=== PATIENT | female | born 1955 | race Caucasian/White ===

== ENCOUNTER 2020-10-15 15:10 | Outpatient (REF) | payer MEDICARE, OTHER, SELFPAY | END 2020-10-15 15:11 | disposition home or self-care (01) | LOC: HO.LAB 15:10 | PROVIDERS: PCP Internal Medicine; Visit Provider Internal Medicine | DX: Z20.828 Contact with and (suspected) exposure to other viral communicable diseases (principal) | CPT/HCPCS: C9803; U0003 ==

== ENCOUNTER 2022-08-29 15:14 | Inpatient (IN) | payer MEDICARE, OTHER, SELFPAY ==
--- NOTE | ~2022-08-29 | CT_ITS ---
EXAMINATION: CT FACIAL BONES WITH CONTRAST CLINICAL INFORMATION: Abscess by right lower jaw COMPARISON: None TECHNIQUE: Multidetector volumetric imaging was performed of the face following administration of 85 mL Omnipaque 300 intravenous contrast. Sagittal and coronal reformatted images were obtained on the technologist's workstation. This CT examination was performed using dose optimization techniques as appropriate, variously including the following: *Automated exposure control *Adjustment of mA and/or kV according to patient size (this includes techniques or standardized protocols for targeted exams where dose is matched to indication/reason for exam; i.e. extremities or head) *Use of iterative reconstruction technique DLP: 350 mGy-cm FINDINGS: There is no evidence of an acute facial bone fracture. The paranasal sinuses are well aerated. Periapical lucencies are seen involving the right maxillary canine with dehiscence of the ventral maxillary cortex and surrounding surrounding one of the residual right maxillary premolars. Dental caries noted in the left mandibular second premolar periapical lucencies involving the left maxillary second premolar and first molar. There is mild asymmetric infiltration of the fat ventral to the right maxillary canine without ivnaa rim enhancing drainable collection.. The orbits are unremarkable in appearance. Prominent submental lymph nodes measuring up to 0.8 m short axis on the left may be reactive in the setting of odontogenic infection. Visualized portion of the thyroid is unremarkable. Prevertebral soft tissues are unremarkable where visualized. Limited views of the brain are unremarkable. CT/CT facial bones w IV con IMPRESSION: 1. Odontogenic disease with multiple periapical lucencies and dental caries most notably involving the right maxillary canine with dehiscence of the ventral maxillary cortex. There is mild asymmetric infiltration of the fat ventral to the right maxillary canine without ivana rim enhancing drainable collection. 2. Prominent submental lymph nodes measuring up to 0.8 m short axis on the left may be reactive in the setting of odontogenic infection.
--- NOTE | 2022-08-29 15:17 | PC.NURSE ---
expect from N: pt coming in on a section 12 for transport from the community, sent in by N for not attending to her ADLs, increasing depression, hopelessness and passive SI.
[2022-08-29 15:25] VITALS: BP 128/78; BP 139/85; PULSE 105; PULSE 107; RESP 20; TEMP 37.6; O2SAT 96; O2SAT 99; BMI 22.6
--- NOTE | 2022-08-29 15:26 | ED_ITS ---
HPI - Psych General Chief Complaint: Psychiatric Symptoms Stated Complaint: SEC 12,CALM/COOP Time Seen by Provider: 08/29/22 15:17 Source: patient and EMS Mode of arrival: EMS Limitations: no limitations History of Present Illness HPI Narrative: Patient comes to the emergency room from [facility] on a Section 12. Patient states that she has trouble with depression, patient has not been taking her medications, states she is very forgetful about taking her medications. Patient states that she is not suicidal or homicidal, but due to the severe depression, she is unable to cope with her daily tasks. Related Data Allergies Allergy/AdvReac Type Severity Reaction Status Date / Time Penicillins Allergy Rash Verified 08/29/22 15:34 Review of Systems Review of Systems: Constitutional : No Weight loss, No Fever, No Chills, No Night Sweats, No Fatigue, No Malaise ENT/Mouth : No Hearing loss, No Ear Pain, No Nasal Congestion, No Sinus Pain, No Hoarseness, No sore throat, No Rhinorrhea, No Swallowing Difficulty Eyes: No Eye Pain, No Swelling, No Redness, No Foreign Body, No Discharge, No Vision Changes Cardiovascular : No Chest Pain, No SOB, No Dyspnea on Exertion, No Orthopnea, No Edema, No Palpitations Respiratory : No Cough, No Sputum, No Wheezing, No Smoke Exposure, No Dyspnea Gastrointestinal : No Nausea, No Vomiting, No Diarrhea, No Constipation, No abdominal Pain, No Hematochezia, No Melena Genitourinary : no irregular bleeding, No Dysuria, No Urinary Frequency, No Hematuria, No Urinary Incontinence, No Urgency, No Flank Pain, No Urinary Flow Changes, No Hesitancy Musculoskeletal : No joint pain, No Myalgias, No Joint Swelling Skin : No Skin Lesions, No rash Neuro : No Weakness, No Numbness, No Paresthesias, No Loss of Consciousness, No Dizziness, No Headache Psych : Complaining of depression, denies suicidal or homicidal ideation Heme/Lymph: No Bruising, No Bleeding,No Lymphadenopathy Endocrine : No Polyuria, No Polydipsia, No Temperature Intolerance [facility] Past Medical History Medical History (Updated 08/29/22 @ 17:41 by Corina Marie MD) Depression Social History Social History Alcohol intake: never Patient Tobacco Use Status: Never used Tobacco Use of substances other than those prescribed or required for medical reasons: No Advance Directives: No Advance Directives Information Provided: No Physical Exam Vital Signs: Vital Signs: Last Vital Signs Temp 99.6 F 08/29/22 15:25 Pulse 107 H 08/29/22 15:25 Resp 20 08/29/22 15:25 BP 139/85 08/29/22 15:25 Pulse Ox 96 08/29/22 15:25 O2 Del Method 08/29/22 15:25 BMI result Body Mass Index 22.6 Const: Other: Appearance: Alert. Oriented X3. No acute distress. Eyes: Pupils equal, round and reactive to light. ENT: Pharynx normal. Neck: Normal inspection. Neck supple. No lymph nodes noted. No crepitus CVS: Normal heart rate and rhythm. Pulses normal. Normal S1 and S2 Respiratory: No respiratory distress. Breath sounds normal. No Wheezing. No rales Abdomen: Soft and nontender. No rigidity. No distention. Skin: Skin warm and dry. Normal skin color. Normal skin turgor. Extremities: No lower extremity edema. No Lacerations. No Rash Neuro: Oriented X 3. No motor deficit. No sensory deficit. Moving all extremities. No slurred speech. CN 2 through 12 grossly intact Psych: calm, cooperative, rose affect Course Course Course Narrative: Since the patient has already been Section [address] [facility]. Likely an inpatient bed search. Patient denies any suicidal or homicidal ideation. All of patient's labs are pending By blood cell count within normal limits. Patient has a UTI. No fever, normal blood pressure, sepsis not suspected. Patient given the 1st dose of cefuroxime in the emergency room. Physician of supervision started at 15:32 [facility] - Psych Lab Data Result diagrams: 08/29/22 17:24 08/29/22 17:24 Labs: Lab Results 08/29/22 08/29/22 08/29/22 Range/Units 15:55 15:55 15:56 WBC (4.8-10.8) X10*3/uL RBC (4.20-5.50) X10*6/uL Hgb (12.0-16.0) g/dl Hct (37.0-47.0) % MCV (80.0-98.0) fL MCH (27.0-33.0) pg MCHC (31.0-35.0) g/dl RDW (11.0-16.0) % Plt Count (160-400) X10*3/uL MPV (9.4-12.3) fL Immature Gran % (Auto) (0.0-0.4) % Neut % (Auto) (45-73) % Lymph % (Auto) (20-40) % [place] % (Auto) (2-11) % Eos % (Auto) (0-4) % Baso % (Auto) (0-2) % Lymph # (Auto) (1.2-4.9) X10*3/uL [place] # (Auto) (0.1-1.2) X10*3/uL Eos # (Auto) (0.0-0.4) X10*3/uL Baso # (Auto) (0.0-0.2) X10*3/uL Abs Immat Gran (auto) (0.00-0.03) X10*3/uL Absolute Neuts (auto) (2.0-8.3) x10*3/uL Absolute Nucleated RBC (0.0-0.012) X10*3/uL Nucleated RBC % (auto) (0.0-0.2) /100WBC Urine Color Dark Yellow Urine Appearance Cloudy Urine pH 5.5 (5.0-9.0) Ur Specific [place] >= 1.030 H (1.005-1.025) Urine Protein 30 (1+) H (Neg-Trace) mg/dL Urine Glucose (UA) Negative (Negative) mg/dL Urine Ketones 15 (Negative) mg/dL Urine Blood Negative (Negative) Urine Nitrite Negative (Negative) Ur Leukocyte Esterase Small (1+) H (Negative) Urine RBC 6-10 H (0-2) /HPF Urine WBC 6-10 H (0-5) /HPF Ur Squamous Epith Cells >20 (0-2) /HPF Urine Bacteria 4+ (None Seen) Hyaline Casts 3-5 (0-2) /LPF Urine Opiates Screen Not Detected (Not Detect) Urine Fentanyl Screen Not Detected (Not Detect) Ur Barbiturates Screen POSITIVE H (Not Detect) Ur Phencyclidine Scrn Not Detected (Not Detect) Ur Amphetamines Screen Not Detected (Not Detect) U Benzodiazepines Scrn POSITIVE H (Not Detect) Urine Cocaine Screen Not Detected (Not Detect) U Marijuana (THC) Screen Not Detected (Not Detect) COVID-19 (TAMMIE) Negative (Negative) COVID-19 Clin Com See Note 08/29/22 Range/Units 17:24 WBC 7.2 (4.8-10.8) X10*3/uL RBC 4.19 L (4.20-5.50) X10*6/uL Hgb 13.5 (12.0-16.0) g/dl Hct 38.3 (37.0-47.0) % MCV 91.4 (80.0-98.0) fL MCH 32.2 (27.0-33.0) pg MCHC 35.2 H (31.0-35.0) g/dl RDW 14.4 (11.0-16.0) % Plt Count 305 (160-400) X10*3/uL MPV 8.7 L (9.4-12.3) fL Immature Gran % (Auto) 0.3 (0.0-0.4) % Neut % (Auto) 63.5 (45-73) % Lymph % (Auto) 27.4 (20-40) % [place] % (Auto) 7.1 (2-11) % Eos % (Auto) 0.7 (0-4) % Baso % (Auto) 1.0 (0-2) % Lymph # (Auto) 2.0 (1.2-4.9) X10*3/uL [place] # (Auto) 0.5 (0.1-1.2) X10*3/uL Eos # (Auto) 0.1 (0.0-0.4) X10*3/uL Baso # (Auto) 0.1 (0.0-0.2) X10*3/uL Abs Immat Gran (auto) 0.02 (0.00-0.03) X10*3/uL Absolute Neuts (auto) 4.6 (2.0-8.3) x10*3/uL Absolute Nucleated RBC 0.000 (0.0-0.012) X10*3/uL Nucleated RBC % (auto) 0.0 (0.0-0.2) /100WBC Urine Color Urine Appearance Urine pH (5.0-9.0) Ur Specific [place] (1.005-1.025) Urine Protein (Neg-Trace) mg/dL Urine Glucose (UA) (Negative) mg/dL Urine Ketones (Negative) mg/dL Urine Blood (Negative) Urine Nitrite (Negative) Ur Leukocyte Esterase (Negative) Urine RBC (0-2) /HPF Urine WBC (0-5) /HPF Ur Squamous Epith Cells (0-2) /HPF Urine Bacteria (None Seen) Hyaline Casts (0-2) /LPF Urine Opiates Screen (Not Detect) Urine Fentanyl Screen (Not Detect) Ur Barbiturates Screen (Not Detect) Ur Phencyclidine Scrn (Not Detect) Ur Amphetamines Screen (Not Detect) U Benzodiazepines Scrn (Not Detect) Urine Cocaine Screen (Not Detect) U Marijuana (THC) Screen (Not Detect) COVID-19 (TAMMIE) (Negative) COVID-19 Clin Com Discharge Plan Discharge Clinical Impression: Depression, UTI (urinary tract infection) Patient Disposition: Still a Patient
--- NOTE | 2022-08-29 15:31 | ECG_ITS ---
Test Reason : MED CLEARANCE Blood Pressure : / mmHG Vent. Rate : 096 BPM Atrial Rate : 096 BPM P-R Int : 176 ms QRS Dur : 082 ms QT Int : 360 ms P-R-T Axes : 043 -35 027 degrees QTc Int : 454 ms Normal sinus rhythm Left anterior fascicular block Otherwise normal ECG No previous ECGs available Referred By: Corina Marie Electronically Signed By:HARPAL LOPEZ MD
--- NOTE | 2022-08-29 15:39 | MHC.CARE ---
Prashant PRECIADO pt is an inpatient psych bedsearch.
[2022-08-29 16:16] LABS: Appearance Urine Cloudy; Color Urine Dark Yellow; Glucose Urine UA Negative (Negative); Leukocyte Esterase Urine Small (1+) (Negative); Nitrite Urine Negative (Negative); PH 5.5 (5.0-9.0); Specific Gravity - Urine >= 1.030 (1.005-1.025); UMIC TRIGGER UACC YES; Urine Blood Negative (Negative); Urine Ketones 15 mg/dL (Negative); Urine Protein 30 (1+) mg/dL (Neg-Trace)
[2022-08-29 16:22] LABS: Amphetamine Screen Urine Not Detected (Not Detect); Barbiturates, Urine POSITIVE (Not Detect); Benzodiazepines Screen Urine POSITIVE (Not Detect); Cannabinoid Screen Urine Not Detected (Not Detect); Cocaine Screen Urine Not Detected (Not Detect); Fentanyl, urine Not Detected (Not Detect); Opiate Screen Urine Not Detected (Not Detect); Phencyclidine Screen Urine Not Detected (Not Detect)
[2022-08-29 16:29] LABS: Bacteria Urine 4+ (None Seen); Squamous Epithelial Cell Urine >20 /HPF (0-2); UACC Culture Trigger YES
[2022-08-29 16:46] LABS: COVID-19 Test Negative (Negative); IDNOW Serial# 16C4AD1C
[2022-08-29 17:29] LABS: MANUAL DIFF FLAG NO
[2022-08-29 17:35] LABS: Basophils Absolute Auto 0.1 X10*3/uL (0.0-0.2); Eosinophils Absolute Auto 0.1 X10*3/uL (0.0-0.4); Eosinophils Percent Auto 0.7 % (0-4); Hematocrit 38.3 % (37.0-47.0); Hemoglobin 13.5 g/dl (12.0-16.0); Imm Gran Abs Auto 0.02 X10*3/uL (0.00-0.03); Imm Gran Pct Auto 0.3 % (0.0-0.4); Lymphocytes Percent Auto 27.4 % (20-40); Mean Corpuscular HGB Conc 35.2 g/dl (31.0-35.0); Mean Corpuscular Hemoglobin 32.2 pg (27.0-33.0); Mean Corpuscular Volume 91.4 fL (80.0-98.0); Mean Platelet Volume 8.7 fL (9.4-12.3); Monocytes Absolute Auto 0.5 X10*3/uL (0.1-1.2); Monocytes Percent Auto 7.1 % (2-11); Neutrophils Absolute Auto 4.6 x10*3/uL (2.0-8.3); Neutrophils Percent Auto 63.5 % (45-73); Platelet Count 305 X10*3/uL (160-400); Red Blood Count 4.19 X10*6/uL (4.20-5.50); Red Cell Distribution Width 14.4 % (11.0-16.0); White Blood Count 7.2 X10*3/uL (4.8-10.8)
[2022-08-29] MEDS: Acetaminophen 325 MG TABLET 975 MG PO (17:39)
[2022-08-29 17:47] LABS: Ethanol < 10 mg/dL
[2022-08-29 17:49] LABS: Alanine Aminotransferase 22 U/L (0-31); Albumin Level 4.6 g/dL (3.5-5.0); Alkaline Phosphatase 75 U/L (39-117); Anion Gap 19 (12-20); Aspartate Amino Transferase 38 U/L (5-31); Bilirubin Direct 0.3 mg/dL (0.0-0.5); Bilirubin Total 0.6 mg/dL (0.0-1.0); Blood Urea Nitrogen 6 mg/dL (9-16); Carbon Dioxide 30 mmol/L (22-29); Chloride 98 mmol/L (96-108); Creatinine Clr Calc Pharmacy 58.1; Estimated Glomerular Filt Rate > 60; Glucose Random 109 mg/dL (60-115); Potassium 3.6 mmol/L (3.3-5.1); Sodium 143 mmol/L (135-145)
--- NOTE | 2022-08-29 19:29 | PHA.MEDREC ---
Pharmacy Consult ? Medication Reconciliation Pharmacy has completed the medication reconciliation. Based on claim history as Patient states that she has trouble with depression, patient has not been taking her medications, states she is very forgetful about taking her medications. per ED Report
[2022-08-29 20:34] VITALS: BP 107/63; PULSE 77; RESP 18; TEMP 36.6; O2SAT 99
[2022-08-29 21:21] VITALS: BP 123/77; PULSE 90; RESP 17; TEMP 37.5; O2SAT 100
[2022-08-29] MEDS: QUEtiapine Fumarate 100 MG TABLET PO (21:21)
[2022-08-29] MEDS: Famotidine 20 MG TABLET PO (21:21)
[2022-08-29] MEDS: hydrOXYzine HCL 50 MG TABLET PO (21:22)
[2022-08-29] MEDS: cloNIDine HCL 0.1 MG TABLET PO (21:22)
[2022-08-30 01:15] VITALS: BP 121/71; PULSE 105; RESP 16; TEMP 36.1; O2SAT 100
--- NOTE | 2022-08-30 03:25 | PC.ADMIT ---
Admission Note: Pt arrived on the unit via w/c at 0115 from ER. Pt is a 67 yo female on a CV for increased depression, helplessness and hopelessness. Reports recently thinking about family members, including mother, , son and sister. UDS +barbituates, +benzodiazepines. Reports drinking ETOH 1-2 drinks 3x/wk and caffeine daily. Reports recent fall on 08/28/22 and states she tripped. Denies smoking or other substance abuse. Reports poor appetite and weight loss of 5 lbs. Pt ate sandwich, snack and drank 360cc water during admission process. PMH: Current UTI (started on Ceftin), Depression, HTN, Asthma. Allergies: PCN. Denies SI/HI/AH/VH. Contracts for safety. Cooperative with admission process. Maintained on 15 min safety checks. Will continue to monitor.
[2022-08-30 08:03] VITALS: BP 124/71; PULSE 62; RESP 16; TEMP 36.8; O2SAT 96
[2022-08-30] MEDS: Naltrexone HCl 50 MG TABLET PO (09:22)
[2022-08-30] MEDS: DULoxetine HCl 30 MG CAPSULE.DR PO (09:22)
[2022-08-30] MEDS: lisinopriL 20 MG TABLET PO (09:23)
[2022-08-30] MEDS: cloNIDine HCL 0.1 MG TABLET PO ×2 (09:23→14:35)
[2022-08-30] MEDS: hydrOXYzine HCL 50 MG TABLET PO ×2 (09:23→14:35)
[2022-08-30] MEDS: Famotidine 20 MG TABLET PO ×2 (09:23→19:38)
[2022-08-30] MEDS: amLODIPine Besylate 5 MG TABLET PO (09:23)
[2022-08-30] MEDS: Acetaminophen 325 MG TABLET 650 MG PO (17:35)
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
[2022-08-30] MEDS: Lidocaine 4 % Patch ADH..PATCH 1 PATCH TRANSDERMA ×2 (19:39)
[2022-08-30 20:19] VITALS: BP 125/64; PULSE 72
--- NOTE | 2022-08-30 20:34 | MHC.RECOVSUP ---
? Reason for consult:Recovery Support o Current location:[facility] ? o Identified substance use concern: AUD? - Support ? ?Intervention: o Community resources provided o Harm reduction discussion ? Additional information:?Patient consult with the Care Team prior to entry. Pt is seeking a Personal Shopper once she leaves the hospital. A referral will be submitted
[2022-08-30] MEDS: traZODone HCL 25 MG HALFTAB PO (21:37)
[2022-08-31] MEDS: Acetaminophen 325 MG TABLET 650 MG PO ×3 (04:14→17:52)
[2022-08-31 08:03] VITALS: BP 116/68; PULSE 70; RESP 16; TEMP 36.9; O2SAT 97
[2022-08-31] MEDS: lisinopriL 20 MG TABLET PO (08:52)
[2022-08-31] MEDS: DULoxetine HCl 30 MG CAPSULE.DR PO (08:53)
[2022-08-31] MEDS: Lidocaine 4 % Patch ADH..PATCH 1 PATCH TRANSDERMA ×2 (08:53→19:42)
[2022-08-31] MEDS: Famotidine 20 MG TABLET PO ×2 (08:53→19:35)
[2022-08-31] MEDS: Naltrexone HCl 50 MG TABLET PO (08:53)
[2022-08-31] MEDS: amLODIPine Besylate 5 MG TABLET PO (08:53)
[2022-08-31 09:25] LABS: Estimated Average Glucose 91 mg/dL; Hemoglobin A1C 85.4393 umol/L; Hemoglobin A1c % 4.8 %
[2022-08-31 09:50] LABS: Alanine Aminotransferase 13 U/L (0-31); Albumin Level 3.7 g/dL (3.5-5.0); Alkaline Phosphatase 60 U/L (39-117); Anion Gap 14 (12-20); Aspartate Amino Transferase 21 U/L (5-31); Bilirubin Total 0.4 mg/dL (0.0-1.0); Blood Urea Nitrogen 8 mg/dL (9-16); Calcium 9.4 mg/dL (8.4-10.2); Carbon Dioxide 29 mmol/L (22-29); Chloride 104 mmol/L (96-108); Cholesterol 202 mg/dL; Creatinine Clr Calc Pharmacy 75.1; Estimated Glomerular Filt Rate > 60; Glucose Fasting 86 mg/dL (60-99); HDL Cholesterol 91 mg/dL; LDL Cholesterol Calculated 93 mg/dl; Potassium 4.1 mmol/L (3.3-5.1); Sodium 143 mmol/L (135-145); Total Protein 6.4 g/dL (6.5-8.0); Triglycerides 93 mg/dL
[2022-08-31 09:59] LABS: Thyroid Stimulating Hormone 0.51 uIU/mL (0.32-4.0)
[2022-08-31 10:36] LABS: Folate 12.7 ng/mL (> or = 4.0); Vitamin B12 353 pg/mL (200-900)
--- NOTE | 2022-08-31 14:14 | MHC.CLN ---
NUTRITION CONSULT FOR 5# WEIGHT LOSS AND POOR INTAKE. PATIENT REPORTS THAT SHE IS EATING MUCH BETTER HERE THAN AT HOME. WOULD LIKE ENSURE BID. STATED THAT HAS AT HOME (RAN OUT). PROVIDES ADDITIONAL 700 KCALS, 40 G PROTEIN. CONTINUE REGULAR DIET WITH NUTRITIONAL SUPPLEMENT.
--- NOTE | 2022-08-31 16:57 | HO.PSYCHPN ---
Subjective Subjective Date of Service: 08/31/22 Reason For Visit: SI Subjective Notes: Richard Warning Interim History: Discussed with team. Met with pt. She says the lidocaine patch is not helping with her knee pain, tylenol and ibuprofen aren't helping either. Has arthritis. Willing to trial aspercreme due to past benefit and diclofenac. Says she feels emotional but better, wants to spend more time with her grandchildren when she leaves. Interested in AA. Still needs a MOCA. Has difficulty falling asleep but this is baseline. willing to trial a higher dose of trazodone, wants a good night sleep. Medication Compliance: Yes Side effects from medications: No Attending Groups: Yes Review of Systems Acute medical concerns: No Medical Review of Systems: unchanged Mental Status Exam Mental Status Exam Narrative: A&O. Well groomed, good hygiene, normal body habitus. Moderate eye contact, inattentive. No Tics or Tremors. No abnormal involuntary movements. Calm, guarded, minimizing sx. Non-pressured speech, spontaneous with regular rate and rhythm, normal volume and prosody. No prolonged speech latency or dysarthria. Mood is ?better,? affect is constricted. Denies SI/SIB/HI upon inquiry. Denies A/VH or delusional thought content. Thoughts are distracted. R/o memory impairment. Insight/ Judgment fair and adequate. Diagnostics Vital Signs (24Hr): Vital Signs - 24 hr 08/30/22 20:19 08/31/22 08:03 Temperature 98.5 F Pulse Rate 72 70 Respiratory Rate 16 Blood Pressure 125/64 116/68 Pulse Oximetry 97 Oxygen Delivery Method Room Air BMI result Body Mass Index 22.6 Labs Results: 08/29/22 17:24 08/31/22 08:31 Labs: Laboratory Results - last 48 hr 08/29/22 08/29/22 08/29/22 17:24 17:24 17:24 WBC 7.2 RBC 4.19 L Hgb 13.5 Hct 38.3 MCV 91.4 MCH 32.2 MCHC 35.2 H RDW 14.4 Plt Count 305 MPV 8.7 L Immature Gran % (Auto) 0.3 Neut % (Auto) 63.5 Lymph % (Auto) 27.4 Anson % (Auto) 7.1 Eos % (Auto) 0.7 Baso % (Auto) 1.0 Lymph # (Auto) 2.0 Anson # (Auto) 0.5 Eos # (Auto) 0.1 Baso # (Auto) 0.1 Abs Immat Gran (auto) 0.02 Absolute Neuts (auto) 4.6 Absolute Nucleated RBC 0.000 Nucleated RBC % (auto) 0.0 Sodium 143 Potassium 3.6 Chloride 98 Carbon Dioxide 30 H Anion Gap 19 BUN 6 L Creatinine 0.89 Estim Creat Clear Calc 58.1 Estimated GFR > 60 Random Glucose 109 Fasting Glucose Estimat Average Glucose Hemoglobin A1c % Calcium 10.0 Total Bilirubin 0.6 Direct Bilirubin 0.3 AST 38 H ALT 22 Alkaline Phosphatase 75 Total Protein 8.0 Albumin 4.6 Triglycerides Cholesterol LDL Cholesterol, Calc HDL Cholesterol Vitamin B12 Folate TSH Ethyl Alcohol < 10 08/31/22 08/31/22 08/31/22 08:31 08:31 08:31 WBC RBC Hgb Hct MCV MCH MCHC RDW Plt Count MPV Immature Gran % (Auto) Neut % (Auto) Lymph % (Auto) Anson % (Auto) Eos % (Auto) Baso % (Auto) Lymph # (Auto) Anson # (Auto) Eos # (Auto) Baso # (Auto) Abs Immat Gran (auto) Absolute Neuts (auto) Absolute Nucleated RBC Nucleated RBC % (auto) Sodium 143 Potassium 4.1 Chloride 104 Carbon Dioxide 29 Anion Gap 14 BUN 8 L Creatinine 0.69 Estim Creat Clear Calc 75.1 Estimated GFR > 60 Random Glucose Fasting Glucose 86 Estimat Average Glucose 91 Hemoglobin A1c % 4.8 Calcium 9.4 Total Bilirubin 0.4 Direct Bilirubin AST 21 D ALT 13 Alkaline Phosphatase 60 Total Protein 6.4 L Albumin 3.7 Triglycerides 93 Cholesterol 202 LDL Cholesterol, Calc 93 HDL Cholesterol 91 Vitamin B12 353 Folate 12.7 TSH 0.51 Ethyl Alcohol Medications Medications Current Medications Acetaminophen (Acetaminophen 325 Mg Tablet) 650 mg PO Q6H PRN PRN Reason: Headache/Pain Mild Scale (1-3) Last Admin: 08/31/22 11:42 Dose: 650 mg Al Hydroxide/Mg Hydroxide (Magnesium Hydrox/Alum Hydrox 30 Ml Oral.Susp) 30 ml PO Q6H PRN PRN Reason: Heartburn/Nausea Amlodipine Besylate (Amlodipine Besylate 5 Mg Tablet) 5 mg PO DAILY [facility]; Protocol Last Admin: 08/31/22 08:53 Dose: 5 mg Cefuroxime Axetil (Cefuroxime Axetil 500 Mg Tablet) 500 mg PO BID@0600,1800 [facility] Last Admin: 08/31/22 08:53 Dose: 500 mg Duloxetine HCl (Duloxetine Hcl 30 Mg Capsule.Dr) 30 mg PO DAILY [facility] Last Admin: 08/31/22 08:53 Dose: 30 mg Famotidine (Famotidine 20 Mg Tablet) 20 mg PO BID [facility] Last Admin: 08/31/22 08:53 Dose: 20 mg Hydroxyzine HCl (Hydroxyzine Hcl 25 Mg Tablet) 25 mg PO Q6H PRN PRN Reason: Anxiety Lidocaine (Lidocaine 4 % Patch Adh..Patch) 1 patch TRANSDERMA BID [facility] Last Admin: 08/31/22 08:53 Dose: 1 patch Lisinopril (Lisinopril 20 Mg Tablet) 20 mg PO DAILY [facility]; Protocol Last Admin: 08/31/22 08:52 Dose: 20 mg Magnesium Hydroxide (Milk Of Magnesia 30 Ml Oral.Susp) 30 ml PO DAILY PRN PRN Reason: Constipation Naltrexone HCl (Naltrexone Hcl 50 Mg Tablet) 50 mg PO DAILY [facility] Last Admin: 08/31/22 08:53 Dose: 50 mg Trazodone HCl (Trazodone Hcl 25 Mg Halftab) 25 mg PO BEDTIME [facility] Last Admin: 08/30/22 21:37 Dose: 25 mg Allergies Allergies Allergy/AdvReac Type Severity Reaction Status Date / Time Penicillins Allergy Rash Verified 08/29/22 15:34 Assessment & Plan Assessment & Plan (1) Alcohol use disorder, severe, dependence: Status: Acute Code(s): F10.20 - Alcohol dependence, uncomplicated (2) MDD (major depressive disorder), recurrent episode, moderate: Status: Acute Code(s): F33.1 - Major depressive disorder, recurrent, moderate Plan Sabrina is a 67 y.o. female. She carries a dx of alcohol use disorder, MDD recurrent. She presented to [facility] ED on 08/29/22 due to increased depression, med non-adherence, and forgetfulness in the context of daily drinking and currently has a UTI (started on Ceftin in the ED). Pt reported not attending to ADLs. Precipitating fxs include complicated bereavement, as she is ruminating on numerous losses, including her father ( of suicide when she was younger), son ( 15 yrs ago from MVA), mother ( of cancer a few yrs ago), and sister ( of complications from alcohol a few yrs ago). Plan: Recommend obtaining MOCA due to memory issues. Will re-start Cymbalta 30 mg daily for sx of depression, may help with chronic pain. Re-start naltrexone 50 mg daily for alcohol abuse. Re-start trazodone at 25 mg QHS and may repeat 1x. Will not restart Seroquel due to pt reporting morning hangover effect. Will not restart clonidine, as she does not want medications she has to take multiple times a day due to forgetfulness. On list for recovery team to see her. Interested in AA. 08/31: Increase trazodone to 100 mg HS for insomnia Q15 min safety checks, CV Monitor response to medications. Monitor for safety in the milieu. Discharge on stabilization. Patient seen. Chart reviewed. Discussed with team. Obtain collateral contact info?as needed I spent minutes with the patient and/or on the patient floor today, greater than?50% of which was spent counseling/coordinating care. Patient educated on: diagnosis, medication risk/benefits and therapeutic strategies Reason for contiued inpatient stay Substantial Risk for: med/psych decompensation
[2022-08-31 17:23] VITALS: BP 131/71; PULSE 73; RESP 16; TEMP 36.6; O2SAT 97
[2022-08-31] MEDS: traZODone HCL 50 MG TABLET PO (19:35)
[2022-09-01 06:00] VITALS: BP 128/58; PULSE 76; RESP 14; TEMP 36.5; O2SAT 96
[2022-09-01 07:00] VITALS: BMI 22.4
[2022-09-01] MEDS: lisinopriL 20 MG TABLET PO (08:33)
[2022-09-01] MEDS: Famotidine 20 MG TABLET PO ×2 (08:33→20:31)
[2022-09-01] MEDS: DULoxetine HCl 30 MG CAPSULE.DR PO (08:33)
[2022-09-01] MEDS: amLODIPine Besylate 5 MG TABLET PO (08:33)
[2022-09-01] MEDS: Naltrexone HCl 50 MG TABLET PO (08:33)
[2022-09-01] MEDS: Lidocaine 4 % Patch ADH..PATCH 1 PATCH TRANSDERMA ×2 (09:01→18:32)
--- NOTE | 2022-09-01 09:06 | P.PNPSI_ITS ---
Subjective Subjective Date of Service: 09/01/22 Reason For Visit: SI Interim History: Patient reports mood is better and that she feels good; denies SI or HI. Patient says that getting into AA is her #1 priority. She used to go to meetings in the past. Regarding alcohol, Patient reiterates that she is done with it. Patient is also interested in getting into partial day program post discharge and is working with social work on application. Discussed memory issues and patient understands that alcohol abuse has been very likely contributory Mental Status Exam Mental Status Exam Narrative: Pt is alert and oriented; behavior is cooperative, friendly and calm; patient is not in distress; dressed in casual attire, adequately groomed; mood is described as good and affect congruent; eye contact appropriate; Speech is normal rate, volume and prosody and not pressured; no psychomotor agitation/retardation present; thought process is organized and goal directed; Thought content is on tx, aftercare, sobriety; otherwise pertinent to relevant topics and without any delusional content, paranoid ideations or grandiosity; denies any SI/HI. There is no evidence of perceptual disturbance. Patients insight and judgment are intact. Diagnostics Vital Signs (24Hr): Vital Signs - 24 hr 08/31/22 17:23 Temperature 97.9 F Pulse Rate 73 Respiratory Rate 16 Blood Pressure 131/71 Pulse Oximetry 97 Oxygen Delivery Method Room Air BMI result Body Mass Index 22.6 Labs Results: 08/29/22 17:24 08/31/22 08:31 Labs: Laboratory Results - last 48 hr 08/31/22 08/31/22 08/31/22 08:31 08:31 08:31 Sodium 143 Potassium 4.1 Chloride 104 Carbon Dioxide 29 Anion Gap 14 BUN 8 L Creatinine 0.69 Estim Creat Clear Calc 75.1 Estimated GFR > 60 Fasting Glucose 86 Estimat Average Glucose 91 Hemoglobin A1c % 4.8 Calcium 9.4 Total Bilirubin 0.4 AST 21 D ALT 13 Alkaline Phosphatase 60 Total Protein 6.4 L Albumin 3.7 Triglycerides 93 Cholesterol 202 LDL Cholesterol, Calc 93 HDL Cholesterol 91 Vitamin B12 353 Folate 12.7 TSH 0.51 Medications Medications Current Medications Acetaminophen (Acetaminophen 325 Mg Tablet) 650 mg PO Q6H PRN PRN Reason: Headache/Pain Mild Scale (1-3) Last Admin: 08/31/22 17:52 Dose: 650 mg Al Hydroxide/Mg Hydroxide (Magnesium Hydrox/Alum Hydrox 30 Ml Oral.Susp) 30 ml PO Q6H PRN PRN Reason: Heartburn/Nausea Amlodipine Besylate (Amlodipine Besylate 5 Mg Tablet) 5 mg PO DAILY [facility]; Protocol Last Admin: 09/01/22 08:33 Dose: 5 mg Cefuroxime Axetil (Cefuroxime Axetil 500 Mg Tablet) 500 mg PO BID@0600,1800 [facility] Last Admin: 09/01/22 08:33 Dose: 500 mg Diclofenac Sodium (Diclofenac Sodium Delayed Rel 50 Mg Tablet.) 50 mg PO BID PRN PRN Reason: pain, moderate Duloxetine HCl (Duloxetine Hcl 30 Mg Capsule.Dr) 30 mg PO DAILY [facility] Last Admin: 09/01/22 08:33 Dose: 30 mg Famotidine (Famotidine 20 Mg Tablet) 20 mg PO BID [facility] Last Admin: 09/01/22 08:33 Dose: 20 mg Hydroxyzine HCl (Hydroxyzine Hcl 25 Mg Tablet) 25 mg PO Q6H PRN PRN Reason: Anxiety Lidocaine (Lidocaine 4 % Patch Adh..Patch) 1 patch TRANSDERMA BID [facility] Last Admin: 09/01/22 09:01 Dose: 1 patch Lisinopril (Lisinopril 20 Mg Tablet) 20 mg PO DAILY [facility]; Protocol Last Admin: 09/01/22 08:33 Dose: 20 mg Magnesium Hydroxide (Milk Of Magnesia 30 Ml Oral.Susp) 30 ml PO DAILY PRN PRN Reason: Constipation Naltrexone HCl (Naltrexone Hcl 50 Mg Tablet) 50 mg PO DAILY [facility] Last Admin: 09/01/22 08:33 Dose: 50 mg Trazodone HCl (Trazodone Hcl 50 Mg Tablet) 50 mg PO BEDTIME [facility] Last Admin: 08/31/22 19:35 Dose: 50 mg Trolamine Salicylate (Trolamine Salicylate 10 % Cream 85 Gm Tube) 1 appl TOPICAL TID PRN PRN Reason: arthritis pain Allergies Allergies Allergy/AdvReac Type Severity Reaction Status Date / Time Penicillins Allergy Rash Verified 08/29/22 15:34 Assessment & Plan Assessment & Plan (1) MDD (major depressive disorder), recurrent episode, moderate: Status: Acute Code(s): F33.1 - Major depressive disorder, recurrent, moderate (2) Alcohol use disorder, severe, dependence: Status: Acute Code(s): F10.20 - Alcohol dependence, uncomplicated Plan Sabrina is a 67 y.o. female. She carries a dx of alcohol use disorder, MDD recurrent. She presented to [facility] on 08/29/22 due to increased depression, med non-adherence, and forgetfulness in the context of daily drinking and currently has a UTI (started on Ceftin in the ED). Pt reported not attending to ADLs. Precipitating fxs include complicated bereavement, as she is ruminating on numerous losses, including her father ( of suicide when she was younger), son ( 15 yrs ago from MVA), mother ( of cancer a few yrs ago), and sist er ( of complications from alcohol a few yrs ago). 09/01 mood much better; no SI or HI; motivated to stay sober Low score on MOCA, ; likely multifactorial including post detox fog and depression reviewed B12/Folate levels which are WNL Plan: Q15 min safety checks, CV Continue Cymbalta 30 mg; patient finds it effective Continue naltrexone 50 mg for cravings Trazodone Monitor response to medications. Monitor for safety in the milieu. Discharge on stabilization. Patient seen. Chart reviewed. Discussed with team. Obtain collateral contact info?as needed I spent minutes with the patient and/or on the patient floor today, greater than?50% of which was spent counseling/coordinating care. Patient educated on: diagnosis and medication risk/benefits Informed Consent: understands Reason for contiued inpatient stay Substantial Risk for: stable for discharge
[2022-09-01] MEDS: Acetaminophen 325 MG TABLET 650 MG PO ×2 (11:53→18:30)
--- NOTE | 2022-09-01 14:29 | PC.NURSE ---
Pt participated in [facility] screen on this date with this abstract writer. Pt scored 16/30, indicating moderate cognitive impairment. MD aware of results.
[2022-09-01] MEDS: Multivitamin TABLET 1 TAB PO (16:29)
[2022-09-01 20:30] VITALS: BP 118/75; PULSE 80; TEMP 36.4
[2022-09-01] MEDS: traZODone HCL 50 MG TABLET PO (20:31)
[2022-09-01] MEDS: Diclofenac Sodium Delayed Rel 50 MG TABLET.DR PO (20:31)
[2022-09-02 06:00] VITALS: BP 119/59; PULSE 72; RESP 14; TEMP 36.6; O2SAT 97
[2022-09-02] MEDS: lisinopriL 20 MG TABLET PO (08:36)
[2022-09-02] MEDS: Naltrexone HCl 50 MG TABLET PO (08:36)
[2022-09-02] MEDS: DULoxetine HCl 30 MG CAPSULE.DR PO (08:36)
[2022-09-02] MEDS: amLODIPine Besylate 5 MG TABLET PO (08:36)
[2022-09-02] MEDS: Lidocaine 4 % Patch ADH..PATCH 1 PATCH TRANSDERMA ×2 (08:37→19:58)
[2022-09-02] MEDS: Famotidine 20 MG TABLET PO ×2 (08:37→19:05)
[2022-09-02] MEDS: Multivitamin TABLET 1 TAB PO (08:37)
[2022-09-02] MEDS: Acetaminophen 325 MG TABLET 650 MG PO ×2 (11:57→18:02)
--- NOTE | 2022-09-02 14:15 | P.PNPSI_ITS ---
Subjective Subjective Date of Service: 09/02/22 Reason For Visit: SI Interim History: Mood remains improved. Patient complaining of tooth pain lower left molar. Medical Collections Representative examined and place m edical consult to assess for abscess and whether or not antibiotics are needed Mental Status Exam Mental Status Exam Narrative: Pt is alert and oriented; behavior is cooperative, friendly and calm; patient is in physical discomfort from mouth pain; dressed in casual attire, adequately g roomed; mood is described as ok and affect looks in physical discomfort; eye contact appropriate; Speech is normal rate, volume and prosody and not pressured; no psychomotor agitation/retardation present; thought process is organized and goal directed; Thought content is on tx, aftercare, sobriety; otherwise pertinent to relevant topics and without any delusional content, paranoid ideations or grandiosity; denies any SI/HI. There is no evidence of perceptual disturbance. Patients insight and judgment are intact. Diagnostics Vital Signs (24Hr): Vital Signs - 24 hr 09/01/22 20:30 09/02/22 06:00 Temperature 97.6 F 98 F Pulse Rate 80 72 Respiratory Rate 14 Blood Pressure 118/75 119/59 L Pulse Oximetry 97 Oxygen Delivery Method Room Air BMI result Body Mass Index 22.4 Labs Results: 08/29/22 17:24 08/31/22 08:31 Medications Medications Current Medications Acetaminophen (Acetaminophen 325 Mg Tablet) 650 mg PO Q6H PRN PRN Reason: Headache/Pain Mild Scale (1-3) Last Admin: 09/02/22 11:57 Dose: 650 mg Al Hydroxide/Mg Hydroxide (Magnesium Hydrox/Alum Hydrox 30 Ml Oral.Susp) 30 ml PO Q6H PRN PRN Reason: Heartburn/Nausea Amlodipine Besylate (Amlodipine Besylate 5 Mg Tablet) 5 mg PO DAILY [facility]; Protocol Last Admin: 09/02/22 08:36 Dose: 5 mg Benzocaine (Benzocaine 20 % Oral Gel 9 Gm Tube) 1 appl MUCOUS MEM QID PRN; Protocol PRN Reason: tooth pain Cefuroxime Axetil (Cefuroxime Axetil 500 Mg Tablet) 500 mg PO BID@0600,1800 [facility] Last Admin: 09/02/22 06:10 Dose: 500 mg Diclofenac Sodium (Diclofenac Sodium Delayed Rel 50 Mg Tablet.Dr) 50 mg PO BID PRN PRN Reason: pain, moderate Last Admin: 09/01/22 20:31 Dose: 50 mg Duloxetine HCl (Duloxetine Hcl 30 Mg Capsule.Dr) 30 mg PO DAILY [facility] Last Admin: 09/02/22 08:36 Dose: 30 mg Famotidine (Famotidine 20 Mg Tablet) 20 mg PO BID [facility] Last Admin: 09/02/22 08:37 Dose: 20 mg Hydroxyzine HCl (Hydroxyzine Hcl 25 Mg Tablet) 25 mg PO Q6H PRN PRN Reason: Anxiety Ibuprofen (Ibuprofen 600 Mg Tablet) 600 mg PO Q6H PRN PRN Reason: mild pain Lidocaine (Lidocaine 4 % Patch Adh..Patch) 1 patch TRANSDERMA BID [facility] Last Admin: 09/02/22 08:37 Dose: 1 patch Lisinopril (Lisinopril 20 Mg Tablet) 20 mg PO DAILY [facility]; Protocol Last Admin: 09/02/22 08:36 Dose: 20 mg Magnesium Hydroxide (Milk Of Magnesia 30 Ml Oral.Susp) 30 ml PO DAILY PRN PRN Reason: Constipation Multivitamins/Vitamin C (Multivitamin Tablet) 1 tab PO DAILY [facility] Last Admin: 09/02/22 08:37 Dose: 1 tab Naltrexone HCl (Naltrexone Hcl 50 Mg Tablet) 50 mg PO DAILY [facility] Last Admin: 09/02/22 08:36 Dose: 50 mg Trazodone HCl (Trazodone Hcl 50 Mg Tablet) 50 mg PO BEDTIME [facility] Last Admin: 09/01/22 20:31 Dose: 50 mg Trolamine Salicylate (Trolamine Salicylate 10 % Cream 85 Gm Tube) 1 appl TOPI ODESSA TID PRN PRN Reason: arthritis pain Allergies Allergies Allergy/AdvReac Type Severity Reaction Status Date / Time Penicillins Allergy Rash Verified 08/29/22 15:34 Assessment & Plan Assessment & Plan (1) Alcohol use disorder, severe, dependence: Status: Acute Code(s): F10.20 - Alcohol dependence, uncomplicated (2) MDD (major depressive disorder), recurrent episode, moderate: Status: Acute Code(s): F33.1 - Major depressive disorder, recurrent, moderate Plan Sabrina is a 67 y.o. female. She carries a dx of alcohol use disorder, MDD recurrent. She presented to [facility] on 08/29/22 due to increased depression, med non-adherence, and forgetfulness in the context of daily drinking and currently has a UTI (started on Ceftin in the ED). Pt reported not attending to ADLs. Precipitating fxs include complicated bereavement, as she is ruminating on numerous losses, including her father ( of suicide when she was younger), son ( 15 yrs ago from MVA), mother ( of cancer a few yrs ago), and sister ( of complications from alcohol a few yrs ago). 09/01 mood much better; no SI or HI; motivated to stay sober Low score on MOCA, ; likely multifactorial including post detox fog and depression reviewed B12/Folate levels which are WNL 09/02 patient has beginning of it looks like a possible abscess lower left molar ; will get Medicaid will consult. Otherwise patient remains in improved mood. Despite improved symptoms, patient is at risk for both relapse and decompensation and it is ad copy writer's opinion she should remain on the unit so that aftercare can be better set up for her. Plan: Q15 min safety checks, CV Hospitalist consult to examine lower left molar/abscess Continue Cymbalta 30 mg; patient finds it effective Continue naltrexone 50 mg for cravings Trazodone Monitor response to medications. Monitor for safety in the milieu. Discharge on stabilization. Patient seen. Chart reviewed. Discussed with team. Obtain collateral contact info?as needed I spent minutes with the patient and/or on the patient floor today, greater than?50% of which was spent counseling/coordinating care. Patient educated on: diagnosis and medical condition Informed Consent: understands Reason for contiued inpatient stay Substantial Risk for: stable for discharge
[2022-09-02] MEDS: Ibuprofen 600 MG TABLET PO ×2 (14:55→19:04)
[2022-09-02] MEDS: Benzocaine 20 % Oral Gel 9 GM TUBE 1 APPL MUCOUS MEM (15:49)
[2022-09-02 16:15] VITALS: BP 132/80; PULSE 73; TEMP 36.5
[2022-09-02] MEDS: Diclofenac Sodium Delayed Rel 50 MG TABLET.DR PO ×2 (19:05→21:04)
[2022-09-02] MEDS: traZODone HCL 50 MG TABLET PO (20:16)
[2022-09-03 06:00] VITALS: BP 126/70; PULSE 81; RESP 14; TEMP 36.1; O2SAT 97
[2022-09-03] MEDS: Naltrexone HCl 50 MG TABLET PO (08:58)
[2022-09-03] MEDS: DULoxetine HCl 30 MG CAPSULE.DR PO (08:58)
[2022-09-03] MEDS: amLODIPine Besylate 5 MG TABLET PO (08:59)
[2022-09-03] MEDS: Multivitamin TABLET 1 TAB PO (08:59)
[2022-09-03] MEDS: Famotidine 20 MG TABLET PO (08:59)
[2022-09-03] MEDS: lisinopriL 20 MG TABLET PO (08:59)
[2022-09-03] MEDS: Lidocaine 4 % Patch ADH..PATCH 1 PATCH TRANSDERMA (08:59)
[2022-09-03] MEDS: Ibuprofen 600 MG TABLET PO (09:06)
--- NOTE | 2022-09-03 11:42 | HO.PSYCHPN ---
Subjective Subjective Date of Service: 09/03/22 Reason For Visit: SI Interim History: Patient seen and discussed. She remains imroved in terms of her mood and looking forward to IA soon. Patient reports no depression. Complaining of tooth ache. Better today. Says she has to see dentist when she leaves. Patient on antibiotics for UTI. Review of Systems Review of Systems CVS: No c/o chest pain, palpitations, no SOB BUSINESS STRATEGY MANAGER: No c/o dizziness, headache GI: No c/o Nausea, Vomiting, diarrhea, constipation or heartburn Mental Status Exam Mental Status Exam Narrative: Pt is alert and oriented; behavior is cooperative, friendly and calm; dressed in casual attire, adequately groomed; mood is described as ok and affect looks in physical discomfort; eye contact appropriate; Speech is normal rate, volume and prosody and not pressured; no psychomotor agitation/retardation present; thought process is organized and goal directed; Thought content is on tx, aftercare, sobriety; otherwise pertinent to relevant topics and without any delusional content, paranoid ideations or grandiosity; denies any SI/HI. There is no evidence of perceptual disturbance. Patients insight and judgment are intact. Diagnostics Vital Signs (24Hr): Vital Signs - 24 hr 09/02/22 16:15 09/03/22 06:00 Temperature 97.7 F 97 F Pulse Rate 73 81 Respiratory Rate 14 Blood Pressure 132/80 126/70 Pulse Oximetry 97 Oxygen Delivery Method Room Air BMI result Body Mass Index 22.4 Labs Results: 08/29/22 17:24 08/31/22 08:31 Medications Medications Current Medications Acetaminophen (Acetaminophen 325 Mg Tablet) 650 mg PO Q6H PRN PRN Reason: Headache/Pain Mild Scale (1-3) Last Admin: 09/02/22 18:02 Dose: 650 mg Al Hydroxide/Mg Hydroxide (Magnesium Hydrox/Alum Hydrox 30 Ml Oral.Susp) 30 ml PO Q6H PRN PRN Reason: Heartburn/Nausea Amlodipine Besylate (Amlodipine Besylate 5 Mg Tablet) 5 mg PO DAILY [facility]; Protocol Last Admin: 09/03/22 08:59 Dose: 5 mg Benzocaine (Benzocaine 20 % Oral Gel 9 Gm Tube) 1 appl MUCOUS MEM QID PRN; Protocol PRN Reason: tooth pain Last Admin: 09/02/22 15:49 Dose: 1 appl Cefuroxime Axetil (Cefuroxime Axetil 500 Mg Tablet) 500 mg PO BID@0600,1800 [facility] Last Admin: 09/03/22 06:12 Dose: 500 mg Diclofenac Sodium (Diclofenac Sodium Delayed Rel 50 Mg Tablet.Dr) 50 mg PO BID PRN PRN Reason: pain, moderate Last Admin: 09/02/22 21:04 Dose: 50 mg Duloxetine HCl (Duloxetine Hcl 30 Mg Capsule.Dr) 30 mg PO DAILY [facility] Last Admin: 09/03/22 08:58 Dose: 30 mg Famotidine (Famotidine 20 Mg Tablet) 20 mg PO BID [facility] Last Admin: 09/03/22 08:59 Dose: 20 mg Hydroxyzine HCl (Hydroxyzine Hcl 25 Mg Tablet) 25 mg PO Q6H PRN PRN Reason: Anxiety Ibuprofen (Ibuprofen 600 Mg Tablet) 600 mg PO Q6H PRN PRN Reason: mild pain Last Admin: 09/03/22 09:06 Dose: 600 mg Lidocaine (Lidocaine 4 % Patch Adh..Patch) 1 patch TRANSDERMA BID [facility] Last Admin: 09/03/22 08:59 Dose: 1 patch Lisinopril (Lisinopril 20 Mg Tablet) 20 mg PO DAILY [facility]; Protocol Last Admin: 09/03/22 08:59 Dose: 20 mg Magnesium Hydroxide (Milk Of Magnesia 30 Ml Oral.Susp) 30 ml PO DAILY PRN PRN Reason: Constipation Multivitamins/Vitamin C (Multivitamin Tablet) 1 tab PO DAILY [facility] Last Admin: 09/03/22 08:59 Dose: 1 tab Naltrexone HCl (Naltrexone Hcl 50 Mg Tablet) 50 mg PO DAILY [facility] Last Admin: 09/03/22 08:58 Dose: 50 mg Trazodone HCl (Trazodone Hcl 50 Mg Tablet) 50 mg PO BEDTIME [facility] Last Admin: 09/02/22 20:16 Dose: 50 mg Trolamine Salicylate (Trolamine Salicylate 10 % Cream 85 Gm Tube) 1 appl TOPICAL TID PRN PRN Reason: arthritis pain Allergies Allergies Allergy/AdvReac Type Severity Reaction Status Date / Time Penicillins Allergy Rash Verified 08/29/22 15:34 Assessment & Plan Assessment & Plan (1) Alcohol use disorder, severe, dependence: Status: Acute Code(s): F10.20 - Alcohol dependence, uncomplicated (2) MDD (major depressive disorder), recurrent episode, moderate: Status: Acute Code(s): F33.1 - Major depressive disorder, recurrent, moderate Plan Sabrina is a 67 y.o. female. She carries a dx of alcohol use disorder, MDD recurrent. She presented to [facility] ED on 08/29/22 due to increased depression, med non-adherence, and forgetfulness in the context of daily drinking and currently has a UTI (started on Ceftin in the ED). Pt reported not attending to ADLs. Precipitating fxs include complicated bereavement, as she is ruminating on numerous losses, including her father ( of suicide when she was younger), son ( 15 yrs ago from MVA), mother ( of cancer a few yrs ago), and sister ( of complications from alcohol a few yrs ago). 09/01 mood much better; no SI or HI; motivated to stay sober Low score on MOCA, ; likely multifactorial including post detox fog and depression reviewed B12/Folate levels which are WNL 09/02 patient has beginning of it looks like a possible abscess lower left molar; will get Medicaid will consult. Otherwise patient remains in improved mood. Despite improved symptoms, patient is at risk for both relapse and decompensation and it is screen writer's opinion she should remain on the unit so that aftercare can be better set up for her. Plan: Q15 min safety checks, CV Hospitalist consult to examine lower left molar/abscess Continue Cymbalta 30 mg; patient finds it effective Continue naltrexone 50 mg for cravings Trazodone Monitor response to medications. Monitor for safety in the milieu. Discharge on stabilization. Patient seen. Chart reviewed. Discussed with team. Obtain collateral contact info?as needed 09/03:Continue current treatment plan. FU on medicine consult regarding left lower molar toothache. I spent minutes with the patient and/or on the patient floor today, greater than?50% of which was spent counseling/coordinating care. Reason for contiued inpatient stay Substantial Risk for: inability to function and rapid decompensation
[2022-09-03] MEDS: Acetaminophen 325 MG TABLET 650 MG PO (13:26)
--- NOTE | 2022-09-03 14:59 | P.CNHOSGPS_ITS ---
History of Present Illness Data of Consult Service Date: 09/03/22 Primary Care Provider: Mónica Monroe MD HPI 67-year-old female with past medical history of hypertension, admitted to [facility] for management of major depression disorder as well as alcohol use currently being treated for UTI, we are consulted as patient is complaining of an abscess in her tooth. Patient reports that she started developing the abscess yesterday, she has had chronic problems with right lower molar, and reports that she knows that she has to follow-up with dentist but currently denies any fever or chills, she has had difficulty with swallowing as a result of the pain. Describes the pain as 8/10, non-radiating, no drooling, no abdominal pain, no nausea or vomiting, no diarrhea constipation, no urinary symptoms and no lower extremity edema. Vitals reviewed stable and within normal range. Review of Systems Review of Systems: Yes all other systems are reviewed and are negative [facility] Medical History (Updated 09/03/22 @ 15:03 by Deborah Soto MD) Depression Hypertension Pertinent family history: No known family history of CAD Surgical History (Updated 09/03/22 @ 15:04 by Deborah Soto MD) H/O bilateral salpingectomy Social History Household Members: Family Housing: House Do you presently have visiting nurse or other home services: No Alcohol intake: never Patient Tobacco Use Status: Never used Tobacco e-Cigarette/Vaping Use: Never Used Substance Use Type: Caffiene service: No Sexual orientation: Straight/Heterosexual Meds Allergies Allergy/AdvReac Type Severity Reaction Status Date / Time Penicillins Allergy Rash Verified 08/29/22 15:34 Active Medications: Current Medications Acetaminophen (Acetaminophen 325 Mg Tablet) 650 mg PO Q6H PRN PRN Reason: Headache/Pain Mild Scale (1-3) Last Admin: 09/03/22 13:26 Dose: 650 mg Al Hydroxide/Mg Hydroxide (Magnesium Hydrox/Alum Hydrox 30 Ml Oral.Susp) 30 ml PO Q6H PRN PRN Reason: Heartburn/Nausea Amlodipine Besylate (Amlodipine Besylate 5 Mg Tablet) 5 mg PO DAILY [facility]; [facility] Last Admin: 09/03/22 08:59 Dose: 5 mg Benzocaine (Benzocaine 20 % Oral Gel 9 Gm Tube) 1 appl MUCOUS MEM QID PRN; Protocol PRN Reason: tooth pain Last Admin: 09/02/22 15:49 Dose: 1 appl Cefuroxime Axetil (Cefuroxime Axetil 500 Mg Tablet) 500 mg PO BID@0600,1800 [facility] Last Admin: 09/03/22 06:12 Dose: 500 mg Diclofenac Sodium (Diclofenac Sodium Delayed Rel 50 Mg Tablet.Dr) 50 mg PO BID PRN PRN Reason: pain, moderate Last Admin: 09/02/22 21:04 Dose: 50 mg Duloxetine HCl (Duloxetine Hcl 30 Mg Capsule.Dr) 30 mg PO DAILY [facility] Last Admin: 09/03/22 08:58 Dose: 30 mg Famotidine (Famotidine 20 Mg Tablet) 20 mg PO BID [facility] Last Admin: 09/03/22 08:59 Dose: 20 mg Hydroxyzine HCl (Hydroxyzine Hcl 25 Mg Tablet) 25 mg PO Q6H PRN PRN Reason: Anxiety Ibuprofen (Ibuprofen 600 Mg Tablet) 600 mg PO Q6H PRN PRN Reason: mild pain Last Admin: 09/03/22 09:06 Dose: 600 mg Lidocaine (Lidocaine 4 % Patch Adh..Patch) 1 patch TRANSDERMA BID [facility] Last Admin: 09/03/22 08:59 Dose: 1 patch Lisinopril (Lisinopril 20 Mg Tablet) 20 mg PO DAILY [facility]; Protocol Last Admin: 09/03/22 08:59 Dose: 20 mg Magnesium Hydroxide (Milk Of Magnesia 30 Ml Oral.Susp) 30 ml PO DAILY PRN PRN Reason: Constipation Multivitamins/Vitamin C (Multivitamin Tablet) 1 tab PO DAILY [facility] Last Admin: 09/03/22 08:59 Dose: 1 tab Naltrexone HCl (Naltrexone Hcl 50 Mg Tablet) 50 mg PO DAILY [facility] Last Admin: 09/03/22 08:58 Dose: 50 mg Trazodone HCl (Trazodone Hcl 50 Mg Tablet) 50 mg PO BEDTIME [facility] Last Admin: 09/02/22 20:16 Dose: 50 mg Trolamine Salicylate (Trolamine Salicylate 10 % Cream 85 Gm Tube) 1 appl TOPICAL TID PRN PRN Reason: arthritis pain Home Medications Medication Instructions Recorded Confirmed Last Taken Type amlodipine 5 mg tablet 1 tab PO DAILY 08/29/22 08/29/22 Unknown History clonidine HCl 0.1 mg tablet 1 tab PO TID 08/29/22 08/29/22 Unknown History duloxetine 30 mg capsule,delayed 1 cap PO DAILY 08/29/22 08/29/22 Unknown History release famotidine 20 mg tablet 1 tab PO BID indigestion 08/29/22 08/29/22 Unknown History hydroxyzine pamoate 50 mg capsule 1 cap PO TID 08/29/22 08/29/22 Unknown History lisinopril 20 mg tablet 20 mg PO DAILY 08/29/22 08/29/22 Unknown History naltrexone 50 mg tablet 1 tab PO DAILY 08/29/22 08/29/22 Unknown History ondansetron 4 mg disintegrating 1 tab PO TID PRN nausea 08/29/22 08/29/22 Unknown History tablet quetiapine 100 mg tablet 1 tab PO BEDTIME 08/29/22 08/29/22 Unknown History Results Labs CBC and Chem 7: 08/29/22 17:24 08/31/22 08:31 Assessment and Plan (1) Dental abscess: Status: Acute Plan 67-year-old female admitted to [facility] for management of depression as well as alcohol use disorder. We are asked to see this patient in evaluation of a den [place] abscess # dental abscess - given the difficulty in swallowing will obtain a CT of the face with contrast - patient already on cefuroxime, will add Flagyl - lidocaine gel for pain - please follow CT of face, if there is any acute findings patient will require an immediate and stat dental intervention - will require an outpatient follow-up with a dentist Management of psych issues per [facility] At this time will sign off on this patient unless CT of the face shows any acute findings, please re-consult Physical Exam Vital Signs: Last Vital Signs Temp 97 F 09/03/22 06:00 Pulse 81 09/03/22 06:00 Resp 14 09/03/22 06:00 BP 126/70 09/03/22 06:00 Pulse Ox 97 09/03/22 06:00 O2 Del Method 09/03/22 06:00 BMI result Body Mass Index 22.4 Const Other: Alert and oriented, in no acute distress HENMT Other: Has swelling on the right mandible region, painful on palpation Resp Other: No respiratory distress, clear to auscultation bilaterally GI Other: Abdomen is soft, nontender Neuro Cranial nerves: Yes CN's II-XII intact bilaterally
[2022-09-03 15:32] LABS: Anion Gap 13 (12-20); Blood Urea Nitrogen 11 mg/dL (9-16); Calcium 9.8 mg/dL (8.4-10.2); Carbon Dioxide 30 mmol/L (22-29); Chloride 99 mmol/L (96-108); Creatinine Clr Calc Pharmacy 66.4; Estimated Glomerular Filt Rate > 60; Glucose Random 97 mg/dL (60-115); Potassium 4.3 mmol/L (3.3-5.1); Sodium 138 mmol/L (135-145)
[2022-09-03] MEDS: metroNIDAZOLE 500 MG TABLET PO (16:53)
[2022-09-03] MEDS: iohexoL 350 MG/ML 100 ML INFUS..BTL IV (17:31)
[2022-09-03 20:20] VITALS: BP 141/83; PULSE 91; RESP 18; TEMP 36.6; O2SAT 99
[2022-09-03] MEDS: Ondansetron ODT 4 MG TAB.RAPDIS TRANSLINGU (21:02)
--- NOTE | 2022-09-03 21:10 | PC.NURSE ---
PT vomited 2x shortly after receiving Ceftin dose. VS stable, afebrile. Provider aware, Zofran ordered and given. Resting in bed, will hold evening meds at this time.
[2022-09-04] MEDS: metroNIDAZOLE 500 MG TABLET PO ×3 (06:32→21:01)
[2022-09-04 08:25] VITALS: BP 105/68; PULSE 87; RESP 18; TEMP 36.5; O2SAT 96
[2022-09-04] MEDS: amLODIPine Besylate 5 MG TABLET PO (08:56)
[2022-09-04] MEDS: Multivitamin TABLET 1 TAB PO (08:56)
[2022-09-04] MEDS: DULoxetine HCl 30 MG CAPSULE.DR PO (08:56)
[2022-09-04] MEDS: Naltrexone HCl 50 MG TABLET PO (08:56)
[2022-09-04] MEDS: lisinopriL 20 MG TABLET PO (08:56)
[2022-09-04] MEDS: Famotidine 20 MG TABLET PO ×2 (08:56→21:02)
[2022-09-04] MEDS: Lidocaine 4 % Patch ADH..PATCH 1 PATCH TRANSDERMA ×2 (08:59→21:02)
[2022-09-04] MEDS: Acetaminophen 325 MG TABLET 650 MG PO ×2 (11:32→18:58)
[2022-09-04] MEDS: Ibuprofen 600 MG TABLET PO (15:46)
[2022-09-04 18:00] VITALS: BP 140/75; PULSE 98; TEMP 36.6; O2SAT 98
--- NOTE | 2022-09-04 18:22 | HO.PSYCHPN ---
Subjective Subjective Date of Service: 09/04/22 Reason For Visit: SI Interim History: Patient seen and discussed. Feels much better. Her tooth pain has decreased. She was seen by medicine. Head CT scan ordered and showed evidence of dental abscess and infection. Patient was started on flagyl in addition to the Cefuroxime she is on for UTI. She reports her mood continues to improve and feels positive about discharge soon. Review of Systems Review of Systems Yes all other systems are reviewed and are negative Mental Status Exam Mental Status Exam Narrative: Pt is alert and oriented; behavior is cooperative, friendly and calm; dressed in casual attire, adequately groomed; mood is described as ok and affect looks in physical discomfort; eye contact appropriate; Speech is normal rate, volume and prosody and not pressured; no psychomotor agitation/retardation present; thought process is organized and goal directed; Thought content is on tx, aftercare, sobriety; otherwise pertinent to relevant topics and without any delusional content, paranoid ideations or grandiosity; denies any SI/HI. There is no evidence of perceptual disturbance. Patients insight and judgment are intact. Diagnostics Vital Signs (24Hr): Vital Signs - 24 hr 09/03/22 20:20 09/04/22 08:25 Temperature 97.8 F 97.7 F Pulse Rate 91 87 Respiratory Rate 18 18 Blood Pressure 141/83 H 105/68 Pulse Oximetry 99 96 Oxygen Delivery Method Room Air Room Air BMI result Body Mass Index 22.4 Labs Results: 08/29/22 17:24 09/03/22 15:13 Labs: Laboratory Results - last 48 hr 09/03/22 15:13 Sodium 138 Potassium 4.3 Chloride 99 Carbon Dioxide 30 H Anion Gap 13 BUN 11 Creatinine 0.78 Estim Creat Clear Calc 66.4 Estimated GFR > 60 Random Glucose 97 Calcium 9.8 Imaging Radiology Impressions: ITS Impressions Face CT 09/03/22 17:38 IMPRESSION: 1. Odontogenic disease with multiple periapical lucencies and dental caries most notably involving the right maxillary canine with dehiscence of the ventral maxillary cortex. There is mild asymmetric infiltration of the fat ventral to the right maxillary canine without ivana rim enhancing drainable collection. 2. Prominent submental lymph nodes measuring up to 0.8 m short axis on the left may be reactive in the setting of odontogenic infection. Medications Medications Current Medications Acetaminophen (Acetaminophen 325 Mg Tablet) 650 mg PO Q6H PRN PRN Reason: Headache/Pain Mild Scale (1-3) Last Admin: 09/04/22 11:32 Dose: 650 mg Al Hydroxide/Mg Hydroxide (Magnesium Hydrox/Alum Hydrox 30 Ml Oral.Susp) 30 ml PO Q6H PRN PRN Reason: Heartburn/Nausea Amlodipine Besylate (Amlodipine Besylate 5 Mg Tablet) 5 mg PO DAILY [facility]; Protocol Last Admin: 09/04/22 08:56 Dose: 5 mg Benzocaine (Benzocaine 20 % Oral Gel 9 Gm Tube) 1 appl MUCOUS MEM QID PRN; Protocol PRN Reason: tooth pain Last Admin: 09/02/22 15:49 Dose: 1 appl Cefuroxime Axetil (Cefuroxime Axetil 500 Mg Tablet) 500 mg PO BID@0600,1800 [facility] Last Admin: 09/04/22 17:50 Dose: 500 mg Diclofenac Sodium (Diclofenac Sodium Delayed Rel 50 Mg Tablet.Dr) 50 mg PO BID PRN PRN Reason: pain, moderate Last Admin: 09/02/22 21:04 Dose: 50 mg Duloxetine HCl (Duloxetine Hcl 30 Mg Capsule.Dr) 30 mg PO DAILY [facility] Last Admin: 09/04/22 08:56 Dose: 30 mg Famotidine (Famotidine 20 Mg Tablet) 20 mg PO BID [facility] Last Admin: 09/04/22 08:56 Dose: 20 mg Hydroxyzine HCl (Hydroxyzine Hcl 25 Mg Tablet) 25 mg PO Q6H PRN PRN Reason: Anxiety Ibuprofen (Ibuprofen 600 Mg Tablet) 600 mg PO Q6H PRN PRN Reason: mild pain Last Admin: 09/04/22 15:46 Dose: 600 mg Lidocaine (Lidocaine 4 % Patch Adh..Patch) 1 patch TRANSDERMA BID [facility] Last Admin: 09/04/22 08:59 Dose: 1 patch Lidocaine (Lidocaine 5 % Ointment 35 Gm) 1 appl TOPICAL Q6H PRN; Protocol PRN Reason: Pain, Moderate (Pain Scale 4-6 Lisinopril (Lisinopril 20 Mg Tablet) 20 mg PO DAILY [facility]; Protocol Last Admin: 09/04/22 08:56 Dose: 20 mg Magnesium Hydroxide (Milk Of Magnesia 30 Ml Oral.Susp) 30 ml PO DAILY PRN PRN Reason: Constipation Metronidazole (Metronidazole 500 Mg Tablet) 500 mg PO Q8H [facility] Last Admin: 09/04/22 14:05 Dose: 500 mg Multivitamins/Vitamin C (Multivitamin Tablet) 1 tab PO DAILY [facility] Last Admin: 09/04/22 08:56 Dose: 1 tab Naltrexone HCl (Naltrexone Hcl 50 Mg Tablet) 50 mg PO DAILY [facility] Last Admin: 09/04/22 08:56 Dose: 50 mg Ondansetron HCl (Ondansetron Odt 4 Mg Tab.Rapdis) 4 mg TRANSLINGU Q6H PRN PRN Reason: Vomiting Last Admin: 09/03/22 21:02 Dose: 4 mg Trazodone HCl (Trazodone Hcl 50 Mg Tablet) 50 mg PO BEDTIME [facility] Last Admin: 09/03/22 21:36 Dose: Not Given Trolamine Salicylate (Trolamine Salicylate 10 % Cream 85 Gm Tube) 1 appl TOPICAL TID PRN PRN Reason: arthritis pain Allergies Allergies Allergy/AdvReac Type Severity Reaction Status Date / Time Penicillins Allergy Rash Verified 08/29/22 15:34 Assessment & Plan Assessment & Plan (1) Dental abscess: Status: Acute Code(s): K04.7 - Periapical abscess without sinus (2) Alcohol use disorder, severe, dependence: Status: Acute Code(s): F10.20 - Alcohol dependence, uncomplicated (3) MDD (major depressive disorder), recurrent episode, moderate: Status: Acute Code(s): F33.1 - Major depressive disorder, recurrent, moderate Assessment and Plan: Sabrina is a 67 y.o. female. She carries a dx of alcohol use disorder, MDD recurrent. She presented to [facility] ED on 08/29/22 due to increased depression, med non-adherence, and forgetfulness in the context of daily drinking and currently has a UTI (started on Ceftin in the ED). Pt reported not attending to ADLs. Precipitating fxs include complicated bereavement, as she is ruminating on numerous losses, including her father ( of suicide when she was younger), son ( 15 yrs ago from MVA), mother ( of cancer a few yrs ago), and sister ( of complications from alcohol a few yrs ago). 09/01 mood much better; no SI or HI; motivated to stay sober Low score on MOCA, ; likely multifactorial including post detox fog and depression reviewed B12/Folate levels which are WNL 09/02 patient has beginning of it looks like a possible abscess lower left molar; will get Medicaid will consult. Otherwise patient remains in improved mood.? Despite improved symptoms, patient is at risk for both relapse and decompensation and it is staff writer's opinion she should remain on the unit so that aftercare can be better set up for her. Plan: Q15 min safety checks, CV Hospitalist consult to examine lower left molar/abscess Continue Cymbalta 30 mg; patient finds it effective Continue naltrexone 50 mg for cravings Trazodone Monitor response to medications. Monitor for safety in the milieu. Discharge on stabilization. Patient seen. Chart reviewed. Discussed with team. Obtain collateral contact info?as needed 09/03:Continue current treatment plan. FU on medicine consult regarding left lower molar toothache. 09/04:Continue current treatment plan. I spent minutes with the patient and/or on the patient floor today, greater than?50% of which was spent counseling/coordinating care. Reason for contiued inpatient stay Substantial Risk for: inability to function and rapid decompensation
[2022-09-04] MEDS: traZODone HCL 50 MG TABLET PO (21:02)
[2022-09-05] MEDS: metroNIDAZOLE 500 MG TABLET PO ×2 (06:24→14:15)
[2022-09-05] MEDS: Multivitamin TABLET 1 TAB PO (08:57)
[2022-09-05] MEDS: Famotidine 20 MG TABLET PO (08:57)
[2022-09-05] MEDS: amLODIPine Besylate 5 MG TABLET PO (08:57)
[2022-09-05] MEDS: lisinopriL 20 MG TABLET PO (08:57)
[2022-09-05] MEDS: DULoxetine HCl 30 MG CAPSULE.DR PO (08:58)
[2022-09-05] MEDS: Naltrexone HCl 50 MG TABLET PO (08:58)
[2022-09-05 09:01] VITALS: BP 109/55; PULSE 72; RESP 16; TEMP 36.8; O2SAT 98
--- NOTE | 2022-09-05 09:19 | P.DS_ITS ---
DS: Providers Provider Date of Service: 09/05/22 Date of admission: 08/30/22 00:58 Date of discharge: 09/05/22 Primary care physician: Mónica Monroe MD Admitting clinician: Angela Guerrier Consults: 09/02/22 16:57 Consult to Hospitalist Routine Consulting Provider: Hospitalist Reason For Exam: assess lower left molar for gum abcess; abx? Attending physician on discharge: Dominic Wright DS: Diagnosis Discharge Diagnosis (1) Dental abscess: Status: Acute (2) Alcohol use disorder, severe, dependence: Status: Acute (3) MDD (major depressive disorder), recurrent episode, moderate: Status: Acute DS: Medications Discharge Medications Home Medications: Home Medications Medication Instructions Recorded Confirmed amlodipine 5 mg tablet 1 tab PO DAILY 08/29/22 08/29/22 clonidine HCl 0.1 mg tablet 1 tab PO TID 08/29/22 08/29/22 duloxetine 30 mg capsule,delayed 1 cap PO DAILY 08/29/22 08/29/22 release famotidine 20 mg tablet 1 tab PO BID indigestion 08/29/22 08/29/22 hydroxyzine pamoate 50 mg capsule 1 cap PO TID 08/29/22 08/29/22 lisinopril 20 mg tablet 20 mg PO DAILY 08/29/22 08/29/22 naltrexone 50 mg tablet 1 tab PO DAILY 08/29/22 08/29/22 ondansetron 4 mg disintegrating 1 tab PO TID PRN nausea 08/29/22 08/29/22 tablet quetiapine 100 mg tablet 1 tab PO BEDTIME 08/29/22 08/29/22 Mental Status Exam Mental Status Exam Narrative: Pt is alert and oriented; behavior is cooperative, friendly and calm; dressed in casual attire, adequately groomed; mood is described as good and affect congruent; eye contact appropriate; Speech is normal rate, volume and prosody and not pressured; no psychomotor agitation/retardation present; thought process is organized and goal directed; Thought content is on tx, aftercare, sobriety; otherwise pertinent to relevant topics and without any delusional content, paranoid ideations or grandiosity; denies any SI/HI. There is no evidence of perceptual disturbance. Patients insight and judgment are intact. Data Data Completed and Pending Completed studies during hospitalization [Text1]: 08/29/22 08/29/22 08/29/22 15:55 15:55 15:56 WBC RBC Hgb Hct MCV MCH MCHC RDW Plt Count MPV Immature Gran % (Auto) Neut % (Auto) Lymph % (Auto) Maury % (Auto) Eos % (Auto) Baso % (Auto) Lymph # (Auto) Maury # (Auto) Eos # (Auto) Baso # (Auto) Abs Immat Gran (auto) Absolute Neuts (auto) Absolute Nucleated RBC Nucleated RBC % (auto) Sodium Potassium Chloride Carbon Dioxide Anion Gap BUN Creatinine Estim Creat Clear Calc Estimated GFR Random Glucose Fasting Glucose Estimat Average Glucose Hemoglobin A1c % Calcium Total Bilirubin Direct Bilirubin AST ALT Alkaline Phosphatase Total Protein Albumin Triglycerides Cholesterol LDL Cholesterol, Calc HDL Cholesterol Vitamin B12 Folate TSH Urine Color Dark Yellow Urine Appearance Cloudy Urine pH 5.5 Ur Specific [place] >= 1.030 H Urine Protein 30 (1+) H Urine Glucose (UA) Negative Urine Ketones 15 Urine Blood Negative Urine Nitrite Negative Ur Leukocyte Esterase Small (1+) H Urine RBC 6-10 H Urine WBC 6-10 H Ur Squamous Epith Cells >20 Urine Bacteria 4+ Hyaline Casts 3-5 Urine Opiates Screen Not Detected Urine Fentanyl Screen Not Detected Ur Barbiturates Screen POSITIVE H Ur Phencyclidine Scrn Not Detected Ur Amphetamines Screen Not Detected U Benzodiazepines Scrn POSITIVE H Urine Cocaine Screen Not Detected U Marijuana (THC) Screen Not Detected Ethyl Alcohol COVID-19 (TAMMIE) Negative COVID-19 Clin Com See Note 08/29/22 08/29/22 08/29/22 17:24 17:24 17:24 WBC 7.2 RBC 4.19 L Hgb 13.5 Hct 38.3 MCV 91.4 MCH 32.2 MCHC 35.2 H RDW 14.4 Plt Count 305 MPV 8.7 L Immature Gran % (Auto) 0.3 Neut % (Auto) 63.5 Lymph % (Auto) 27.4 Maury % (Auto) 7.1 Eos % (Auto) 0.7 Baso % (Auto) 1.0 Lymph # (Auto) 2.0 Maury # (Auto) 0.5 Eos # (Auto) 0.1 Baso # (Auto) 0.1 Abs Immat Gran (auto) 0.02 Absolute Neuts (auto) 4.6 Absolute Nucleated RBC 0.000 Nucleated RBC % (auto) 0.0 Sodium 143 Potassium 3.6 Chloride 98 Carbon Dioxide 30 H Anion Gap 19 BUN 6 L Creatinine 0.89 Estim Creat Clear Calc 58.1 Estimated GFR > 60 Random Glucose 109 Fasting Glucose Estimat Average Glucose Hemoglobin A1c % Calcium 10.0 Total Bilirubin 0.6 Direct Bilirubin 0.3 AST 38 H ALT 22 Alkaline Phosphatase 75 Total Protein 8.0 Albumin 4.6 Triglycerides Cholesterol LDL Cholesterol, Calc HDL Cholesterol Vitamin B12 Folate TSH Urine Color Urine Appearance Urine pH Ur Specific [place] Urine Protein Urine Glucose (UA) Urine Ketones Urine Blood Urine Nitrite Ur Leukocyte Esterase Urine RBC Urine WBC Ur Squamous Epith Cells Urine Bacteria Hyaline Casts Urine Opiates Screen Urine Fentanyl Screen Ur Barbiturates Screen Ur Phencyclidine Scrn Ur Amphetamines Screen U Benzodiazepines Scrn Urine Cocaine Screen U Marijuana (THC) Screen Ethyl Alcohol < 10 COVID-19 (TAMMIE) COVID-19 [facility] 08/31/22 08/31/22 08/31/22 08:31 08:31 08:31 WBC RBC Hgb Hct MCV MCH MCHC RDW Plt Count MPV Immature Gran % (Auto) Neut % (Auto) Lymph % (Auto) Maury % (Auto) Eos % (Auto) Baso % (Auto) Lymph # (Auto) Maury # (Auto) Eos # (Auto) Baso # (Auto) Abs Immat Gran (auto) Absolute Neuts (auto) Absolute Nucleated RBC Nucleated RBC % (auto) Sodium 143 Potassium 4.1 Chloride 104 Carbon Dioxide 29 Anion Gap 14 BUN 8 L Creatinine 0.69 Estim Creat Clear Calc 75.1 Estimated GFR > 60 Random Glucose Fasting Glucose 86 Estimat Average Glucose 91 Hemoglobin A1c % 4.8 Calcium 9.4 Total Bilirubin 0.4 Direct Bilirubin AST 21 D ALT 13 Alkaline Phosphatase 60 Total Protein 6.4 L Albumin 3.7 Triglycerides 93 Cholesterol 202 LDL Cholesterol, Calc 93 HDL Cholesterol 91 Vitamin B12 353 Folate 12.7 TSH 0.51 Urine Color Urine Appearance Urine pH Ur Specific [place] Urine Protein Urine Glucose (UA) Urine Ketones Urine Blood Urine Nitrite Ur Leukocyte Esterase Urine RBC Urine WBC Ur Squamous Epith Cells Urine Bacteria Hyaline Casts Urine Opiates Screen Urine Fentanyl Screen Ur Barbiturates Screen Ur Phencyclidine Scrn Ur Amphetamines Screen U Benzodiazepines Scrn Urine Cocaine Screen U Marijuana (THC) Screen Ethyl Alcohol COVID-19 (TAMMIE) COVID-19 Lif[facility] 09/03/22 15:13 WBC RBC Hgb Hct MCV MCH MCHC RDW Plt Count MPV Immature Gran % (Auto) Neut % (Auto) Lymph % (Auto) Maury % (Auto) Eos % (Auto) Baso % (Auto) Lymph # (Auto) Maury # (Auto) Eos # (Auto) Baso # (Auto) Abs Immat Gran (auto) Absolute Neuts (auto) Absolute Nucleated RBC Nucleated RBC % (auto) Sodium 138 Potassium 4.3 Chloride 99 Carbon Dioxide 30 H Anion Gap 13 BUN 11 Creatinine 0.78 Estim Creat Clear Calc 66.4 Estimated GFR > 60 Random Glucose 97 Fasting Glucose Estimat Average Glucose Hemoglobin A1c % Calcium 9.8 Total Bilirubin Direct Bilirubin AST ALT Alkaline Phosphatase Total Protein Albumin Triglycerides Cholesterol LDL Cholesterol, Calc HDL Cholesterol Vitamin B12 Folate TSH Urine Color Urine Appearance Urine pH Ur Specific [place] Urine Protein Urine Glucose (UA) Urine Ketones Urine Blood Urine Nitrite Ur Leukocyte Esterase Urine RBC Urine WBC Ur Squamous Epith Cells Urine Bacteria Hyaline Casts Urine Opiates Screen Urine Fentanyl Screen Ur Barbiturates Screen Ur Phencyclidine Scrn Ur Amphetamines Screen U Benzodiazepines Scrn Urine Cocaine Screen U Marijuana (THC) Screen Ethyl Alcohol COVID-19 (TAMMIE) COVID-19 Clin Com 08/29/22 16:41 Urine clean catch - Urine gaines top Urine Culture - Final Imaging Diagnostic Imaging Impressions Face CT 09/03/22 17:38 IMPRESSION: 1. Odontogenic disease with multiple periapical lucencies and dental caries most notably involving the right maxillary canine with dehiscence of the ventral maxillary cortex. There is mild asymmetric infiltration of the fat ventral to the right maxillary canine without ivana rim enhancing drainable collection. 2. Prominent submental lymph nodes measuring up to 0.8 m short axis on the left may be reactive in the setting of odontogenic infection. DS: Summary Hospital Course Hospital Course: Sabrina is a 67 y.o. female. She carries a dx of alcohol use disorder, MDD recurrent. She presented to [facility] on 08/29/22 due to increased depression, med non-adherence, and forgetfulness in the context of daily drinking and currently has a UTI (started on Ceftin in the ED). Pt reported not attending to ADLs. Precipitating fxs include complicated bereavement, as she is ruminating on numerous losses, including her father ( of suicide when she was younger), son ( 15 yrs ago from MVA), mother ( of cancer a few yrs ago), and sister ( of complications from alcohol a few yrs ago). On admission, Patient was depressed but w/out SI. She was restarted on Duloxetine to good effect. Patient Was without withdrawal symptoms. Patient's m ood soon improved and she was it engaged in 1:1 sessions and groups. She was in good behavior and impulse control and appropriate w/ peers and staff throughout stay on unit. Patient mood remained improved and w/out any SI. She agreed that she's likely been drinking more than she realized and sees it as a large part of her struggles; pt shared her determination to stay sober including going back to AA and engaging w/ partial day program on discharge. Pt had c/o memory issues and scored 16/30 on MOCA which was discussed with patient. Although reasons are likely mutltifactorial including post-detox fogginess, depression and UTI, neuropsychiatric eval was set up post discharge (b12/folate WNL). Pt remained in good mood, future oriented and optimistic about staying sober. She asked for discharge. Pt not in imminent risk of harm to self or others and appropriate to continue tx in the community. On weekend before discharge, pt had tooth pain and seen by medical consult. Rec[employer] Of Deeds discussed case with Dr. Soto who saw pt and ordered head CT; he reports to gag writer that she just needs to see a dentist...There is nothing that needs urgent drainage or maxillofacial assessment. Dr. Sosa recommeded continuing both antibiotics for 5 more days. Pt reported pain was significantly better since being started on abx; she understands continued abx regimen and says she will follow up w/ her dentist. Time spent discussing smoking cessation with patient: 3 to 10 minutes Status at Discharge Functional status at discharge: independent ambulation Overall status at discharge: patient is back to baseline Time Spent with Patient Time attestation: Total time spent providing and/or coordinating discharge services: Time spent: Greater than 30 minutes Discharge Plan Discharge Anticipated Discharge Date/Time: 09/05/22 13:00 Patient Disposition: Home, Self-Care Discharge Diagnosis: MDD, recurrent, moderate in full remission Referrals: Neuropsych Testing: [facility] [Other] - 1 Week (You have been referred to [facility] for neuro-psych testing but it takes up to 3 months for them to process your referral. They will contact your cell phone to schedule; they are scheduling 5 to 7 months out. ) PCP: Dr. Mc Burleson ([facility]) [Other] - 09/08/22 11:00 am ([address] [place] [address] [address], [place] [address] The appointment is in office; please attend as you risk losing Dr. Burleson as your provider if you miss another appointment. ) Partial Hospitalization Program (PHP):[facility] [Other] - 09/23/22 11:00 am (The [facility] building is in the back of the main hospital; it is [facility], you enter in the side doors, take a left in the lobby and down the hallway to the right is where you go for your intake. They will call you on 09/22/22 to verify your intake appointment on 09/23, you must answer, or call them back to confirm your appointment or they cancel it. ) Discharge Medications: New cefuroxime axetil 500 mg Tablet 500 mg PO BID 5 Days Qty: 9 0RF metronidazole 500 mg Tablet 500 mg PO TID 5 Days Qty: 14 0RF trazodone 50 mg Tablet 50 mg PO BEDTIME PRN (Reason: insomnia) 30 Days Qty: 30 0RF lidocaine [Lidocaine Pain Relief] 4 % Adhesive Patch,Medicated 1 patch transdermal BID PRN (Reason: pain) 30 Days Qty: 60 0RF multivitamin [Daily-Dmitry] Tablet 1 tab PO DAILY 30 Days Qty: 30 0RF Continued lisinopril 20 mg tablet 20 mg PO DAILY 30 Days Qty: 30 0RF Changed clonidine HCl 0.1 mg tablet 0.1 mg PO TID 30 Days Qty: 90 0RF naltrexone 50 mg tablet 50 mg PO DAILY 30 Days Qty: 30 0RF amlodipine 5 mg tablet 5 mg PO DAILY 30 Days Qty: 30 0RF duloxetine 30 mg capsule,delayed release(DR/EC) 30 mg PO DAILY 30 Days Qty: 30 0RF famotidine 20 mg tablet 20 mg PO BID 30 Days Qty: 60 0RF Discontinued ondansetron 4 mg tablet,disintegrating 1 tab PO TID PRN (Reason: nausea) hydroxyzine pamoate 50 mg capsule 1 cap PO TID quetiapine 100 mg tablet 1 tab PO BEDTIME Discharge Orders: Discharge Order (Routine); Ordered 09/05/22 Ordered By: Dominic Wright Diet: Regular diet Activity on Discharge: As tolerated Stand Alone Forms: Patient Portal Discharge page, Community Support Care Plan Goals: Maintain mood and safe behaviors Take medications as prescribed Continue to pursue sobriety Practice coping skills Continue with outpatient providers and reach out to them as needed Health Concerns: Mood stability and behaviors Sobriety Tooth Abcsess Trouble with memory Hypertension Plan of Treatment: Follow up with your PCP, dentist, psychiatric provider and other outpatient providers regarding above concerns Take medications as prescribed Assessment: Risk assessment at time of discharge:? Patient was interviewed prior to discharge and found to be fully oriented and without any SI or HI. Patient has insight and demonstrates good judgment in terms of wanting to pursue treatment. Patient is not in imminent risk of harm to self or others and has a safety plan that includes presenting to the closest ER or calling 911 if feeling unsafe.? Patient has been observed closely by nursing and unit staff throughout admission; patient has not engaged in any behaviors that suggest dangerousness to self or others and has demonstrated appropriate behaviors and impulse control Discharge Date/Time: 09/05/22 14:30
[2022-09-05] MEDS: Lidocaine 4 % Patch ADH..PATCH 1 PATCH TRANSDERMA (09:52)
== END 2022-09-05 14:30 | disposition home or self-care (01) | DRG 885 ==
LOC: HO.ED 17:41 → HO.PM5 08-30 01:05
PROVIDERS: Internal Medicine; Admitting Provider Social Worker; Emergency Provider Emergency Medicine; PCP Internal Medicine Medical Oncology; Visit Provider Psychiatry & Neurology Psychiatry
DX: F33.1 Major depressive disorder, recurrent, moderate (principal); N39.0 Urinary tract infection, site not specified; K04.7 Periapical abscess without sinus; F10.20 Alcohol dependence, uncomplicated; Z20.822 Contact with and (suspected) exposure to COVID-19; Z91.14 Patient's other noncompliance with medication regimen; Z88.0 Allergy status to penicillin; Z79.899 Other long term (current) drug therapy
CPT/HCPCS: 36415; 70487; 80048; 80053; 80061; 80076; 80307; 81001; 82077; 82607; 82746; 83036; 84443; 85025; 87086; 87635; 90792; 93005; 99285; Q9967

== ENCOUNTER 2023-03-31 19:36 | Emergency (ER) | payer OTHER, SELFPAY ==
--- NOTE | ~2023-03-31 | CT_ITS ---
EXAMINATION: CT ABDOMEN AND PELVIS WITH CONTRAST CLINICAL INFORMATION: Left lower quadrant pain. COMPARISON: None available. TECHNIQUE: Multidetector volumetric images were obtained from the superior aspect of the liver through the pubic symphysis following administration 85 mL of Omnipaque 350 intravenous contrast. Sagittal and coronal reformatted images were obtained on the technologist's workstation. Oral contrast: No This CT examination was performed using dose optimization techniques as appropriate, variously including the following: *Automated exposure control *Adjustment of mA and/or kV according to patient size (this includes techniques or standardized protocols for targeted exams where dose is matched to indication/reason for exam; i.e. extremities or head) *Use of iterative reconstruction technique DLP: 424 mGy-cm FINDINGS: LUNG BASES: Multifocal platelike opacities, likely representing a combination of atelectasis and scarring. No focal consolidation or pleural effusion. Partially included approximately 1.4 cm nodule in the left breast measuring 23 Hounsfield units (3:1). LIVER, GALLBLADDER, AND BILIARY TREE: The liver is normal in size, shape, and attenuation. No focal liver lesion. Cholecystectomy with mild expected intra and extrahepatic biliary ductal dilatation. PANCREAS: Unremarkable. SPLEEN: Unremarkable. ADRENAL GLANDS: Unremarkable. KIDNEYS AND URETERS: The kidneys are normal in size, shape, and attenuation. No hydronephrosis, hydroureter, or calculi seen. No perinephric stranding. BLADDER: Unremarkable. GASTROINTESTINAL TRACT: Nonspecific gastric distention, possibly related with postprandial state. The small bowel is nondilated. Normal appendix. Mild colonic diverticulosis without pericolonic fat stranding. No evidence of bowel obstruction. Moderate degree of stool burden in the colon and rectum. ABDOMINAL WALL: No significant hernia is appreciated. LYMPH NODES: No lymphadenopathy. VASCULAR: Atherosclerotic disease. Abdominal aorta is normal in caliber. PELVIC VISCERA: Nonspecific hyperattenuation of the central uterus measuring up to 3 cm in axial image 66, series 3. The right ovary is not well evaluated due to superimposed loops of small bowel, however there is visualization of a 1.4 cm simple fluid cyst on axial image 59, series 3 which is almost certainly benign and for which no imaging follow-up is recommended. Normal appearance of the left ovary. OSSEOUS STRUCTURES: Degenerative changes of the spine. CT/CT abdomen pelvis w IV con IMPRESSION: 1. Mild colonic diverticulosis but no evidence of acute diverticulitis. 2. Moderate degree of stool burden in the colon and rectum suggesting constipation. 3. Gastric distention could be related with postprandial state or gastroparesis. 4. The segment zonal anatomy of the uterus is not well delineated, there is nonspecific hyperattenuating material in the central uterus that could represent abnormal thickening of the endometrium for patient's age. Recommend correlation with a pelvic ultrasound. 5. Partially included approximately 1.4 cm nodule in the left breast, incompletely characterized in this examination. If not recently obtained, correlation with a nonemergent diagnostic mammogram/ultrasound is recommended.
[2023-03-31 19:49] VITALS: BP 116/58; BP 120/82; PULSE 72; PULSE 73; PULSE 76; RESP 18; TEMP 36.9; O2SAT 96; O2SAT 98; O2SAT 99; BMI 22.2
[2023-03-31 20:06] LABS: MANUAL DIFF FLAG NO
[2023-03-31 20:11] LABS: Basophils Absolute Auto 0.1 X10*3/uL (0.0-0.2); Basophils Percent Auto 1.3 % (0-2); Eosinophils Absolute Auto 0.1 X10*3/uL (0.0-0.4); Eosinophils Percent Auto 2.3 % (0-4); Hematocrit 36.3 % (37.0-47.0); Hemoglobin 12.1 g/dl (12.0-16.0); Imm Gran Abs Auto 0.02 X10*3/uL (0.00-0.03); Imm Gran Pct Auto 0.4 % (0.0-0.4); Lymphocytes Absolute Auto 1.5 X10*3/uL (1.2-4.9); Lymphocytes Percent Auto 30.8 % (20-40); Mean Corpuscular HGB Conc 33.3 g/dl (31.0-35.0); Mean Corpuscular Volume 98.9 fL (80.0-98.0); Mean Platelet Volume 8.5 fL (9.4-12.3); Monocytes Absolute Auto 0.9 X10*3/uL (0.1-1.2); Neutrophils Absolute Auto 2.3 x10*3/uL (2.0-8.3); Neutrophils Percent Auto 47.2 % (45-73); Platelet Count 236 X10*3/uL (160-400); Red Blood Count 3.67 X10*6/uL (4.20-5.50); Red Cell Distribution Width 15.9 % (11.0-16.0); White Blood Count 4.8 X10*3/uL (4.8-10.8)
--- NOTE | 2023-03-31 20:30 | PC.NURSE ---
Patient ambulated to bathroom independently without issue, given cup for urine, verbalized understanding of giving sample.
[2023-03-31 20:49] LABS: Appearance Urine Clear; Color Urine Yellow; Glucose Urine UA Negative (Negative); Leukocyte Esterase Urine Small (1+) (Negative); Nitrite Urine Negative (Negative); PH 6.5 (5.0-9.0); UMIC TRIGGER UACC YES; Urine Blood Negative (Negative); Urine Ketones Trace mg/dL (Negative); Urine Protein Negative (Neg-Trace)
[2023-03-31 21:01] LABS: Anion Gap 11 (12-20)
[2023-03-31 21:06] LABS: Alanine Aminotransferase 10 U/L (0-31); Albumin Level 4.1 g/dL (3.5-5.0); Alkaline Phosphatase 103 U/L (39-117); Aspartate Amino Transferase 19 U/L (5-31); Bilirubin Direct 0.1 mg/dL (0.0-0.5); Bilirubin Total 0.3 mg/dL (0.0-1.0); Blood Urea Nitrogen 15 mg/dL (9-16); Calcium 9.8 mg/dL (8.4-10.2); Carbon Dioxide 30 mmol/L (22-29); Chloride 101 mmol/L (96-108); Creatinine Clr Calc Pharmacy 78.5; Estimated Glomerular Filt Rate > 60; Glucose Random 100 mg/dL (60-115); Lipase 96 U/L (8-78); Potassium 3.9 mmol/L (3.3-5.1); Sodium 138 mmol/L (135-145); Total Protein 7.5 g/dL (6.5-8.0)
[2023-03-31 21:08] LABS: Bacteria Urine None Seen (None Seen); Hyaline Casts Urine 0-2 /LPF (0-2); RBC Urine 0-2 /HPF (0-2); UACC Culture Trigger YES; WBC Urine 0-5 /HPF (0-5)
--- NOTE | 2023-03-31 21:21 | ED_ITS ---
HPI - Abdominal Pain General Chief Complaint: Abdominal Pain Stated Complaint: Left Flank Pain Time Seen by Provider: 03/31/23 21:00 Source: patient Mode of arrival: EMS History of Present Illness HPI narrative: 68-year-old female brought in for [facility] and has been getting treatment for a UTI for the past week. Patient reports left lower quadrant discomfort that feel similar to when she was 1st started on antibiotics. According to the patient she completed the antibiotics last week but is unsure of what hospital she went to for this whether not it was [facility] or [facility]. She denies any fever, chills, nausea, vomiting and has continued to pass gas and have regular bowel movements. She denies any urinary pain/burning/frequency. Related Data Previous Rx's Medication Instructions Recorded amlodipine 5 mg tablet 5 mg PO DAILY 30 days #30 tabs 09/05/22 cefuroxime axetil 500 mg tablet 500 mg PO BID 5 days #9 tabs 09/05/22 clonidine HCl 0.1 mg tablet 0.1 mg PO TID 30 days #90 tabs 09/05/22 duloxetine 30 mg capsule,delayed 30 mg PO DAILY 30 days #30 caps 09/05/22 release famotidine 20 mg tablet 20 mg PO BID indigestion 30 days 09/05/22 #60 tabs lidocaine 4 % topical patch 1 patch transdermal BID PRN pain 09/05/22 (Lidocaine Pain Relief) 30 days #60 ea lisinopril 20 mg tablet 20 mg PO DAILY 30 days #30 tabs 09/05/22 metronidazole 500 mg tablet 500 mg PO TID 5 days #14 tabs 09/05/22 multivitamin (Daily-Dmitry tablet) 1 tab PO DAILY 30 days #30 tabs 09/05/22 naltrexone 50 mg tablet 50 mg PO DAILY 30 days #30 tabs 09/05/22 trazodone 50 mg tablet 50 mg PO BEDTIME PRN insomnia 30 09/05/22 days #30 tabs Allergies Allergy/AdvReac Type Severity Reaction Status Date / Time Penicillins Allergy Rash Verified 08/29/22 15:34 Review of Systems Review of Systems Pertinent positives and negatives as stated in HPI PMFSH Past Medical History Source: nursing notes reviewed Medical History Depression Hypertension Surgical History H/O bilateral salpingectomy Social History Social History Household Members: Family Housing: House Do you presently have visiting nurse or other home services: No Alcohol intake: never Patient Tobacco Use Status: Never used Tobacco e-Cigarette/Vaping Use: Never Used Substance Use Type: Caffiene Advance Directives: No Advance Directives Information Provided: No service: No Sexual orientation: Straight/Heterosexual Physical Exam ED Vital Signs: Vital Signs - 24 hr 03/31/23 19:49 03/31/23 19:49 03/31/23 22:07 Temperature 98.4 F 98.4 F 98.0 F Pulse Rate 72 73 68 Respiratory Rate 18 18 13 Blood Pressure 116/58 L 116/58 L 118/67 Pulse Oximetry 96 99 100 Oxygen Delivery Method Room Air Room Air Room Air BMI result Body Mass Index 22.2 VITAL SIGNS: Reviewed. GENERAL: Well developed, well nourished, in no acute distress. HEAD: Normocephalic/atraumatic EYES: PERRLA, EOMI EARS: Ext canals without abnormality NOSE: Nares patent bilateral OROPHARYNX: no oral lesions noted, posterior pharynx clear NECK: Supple, no adenopathy LUNGS: Normal breath sounds. No adventitious sounds or accessory muscle use. SpO2<> CARDIOVASCULAR: Regular rate and rhythm without noted murmurs ABDOMEN: Soft, non-tender, non-distended with bowel sounds. MUSCULOSKELETAL: No tenderness, deformities, or effusions noted on gross inspection. EXTREMITIES: No cyanosis, clubbing or edema. SKIN: Inspection of the skin reveals no rashes NEUROLOGIC: Alert and oriented x 4. Strength and sensation to light touch were grossly intact x 4. Medical Decision Making Medical Decision Making MDM Narrative: 68-year-old female who on review pharmacy records appears to have been treated with Macrobid at the end of February, will give initial dose of antibiotics here an d then discharge her on another course of antibiotics, but my initial concern was that the urinalysis does not look significant so I want to ensure that patient does not have renal colic or diverticulitis so will proceed with a CT scan to better differentiate. There is no leukocytosis and patient is afebrile. I reviewed all investigations to include imaging studies in my interpretation is in agreement with radiology's impression of constipation. Remaining incidental findings on the CT scan need to be further evaluated by her primary care provider. There is no evidence of acute urinary tract infection and she was given recommendations for constipation. Differential Diagnosis Please see the discussion above Lab Data Please see the discussion above 03/31/23 20:01 03/31/23 20:40 Labs: Lab Results 03/31/23 03/31/23 03/31/23 Range/Units 20:01 20:40 20:40 WBC 4.8 (4.8-10.8) X10*3/uL RBC 3.67 L (4.20-5.50) X10*6/uL Hgb 12.1 (12.0-16.0) g/dl Hct 36.3 L (37.0-47.0) % MCV 98.9 H (80.0-98.0) fL MCH 33.0 (27.0-33.0) pg MCHC 33.3 (31.0-35.0) g/dl RDW 15.9 (11.0-16.0) % Plt Count 236 (160-400) X10*3/uL MPV 8.5 L (9.4-12.3) fL Immature Gran % (Auto) 0.4 (0.0-0.4) % Neut % (Auto) 47.2 (45-73) % Lymph % (Auto) 30.8 (20-40) % Door % (Auto) 18.0 H (2-11) % Eos % (Auto) 2.3 (0-4) % Baso % (Auto) 1.3 (0-2) % Lymph # (Auto) 1.5 (1.2-4.9) X10*3/uL Door # (Auto) 0.9 (0.1-1.2) X10*3/uL Eos # (Auto) 0.1 (0.0-0.4) X10*3/uL Baso # (Auto) 0.1 (0.0-0.2) X10*3/uL Abs Immat Gran (auto) 0.02 (0.00-0.03) X10*3/uL Absolute Neuts (auto) 2.3 (2.0-8.3) x10*3/uL Absolute Nucleated RBC 0.000 (0.0-0.012) X10*3/uL Nucleated RBC % (auto) 0.0 (0.0-0.2) /100WBC Sodium 138 (135-145) mmol/L Potassium 3.9 (3.3-5.1) mmol/L Chloride 101 (96-108) mmol/L Carbon Dioxide 30 H (22-29) mmol/L Anion Gap 11 L (12-20) BUN 15 (9-16) mg/dL Creatinine 0.65 (0.5-1.4) mg/dL Estim Creat Clear Calc 78.5 Estimated GFR > 60 Random Glucose 100 (60-115) mg/dL Calcium 9.8 (8.4-10.2) mg/dL Total Bilirubin 0.3 (0.0-1.0) mg/dL Direct Bilirubin 0.1 (0.0-0.5) mg/dL AST 19 (5-31) U/L ALT 10 (0-31) U/L Alkaline Phosphatase 103 (39-117) U/L Total Protein 7.5 (6.5-8.0) g/dL Albumin 4.1 (3.5-5.0) g/dL Lipase 96 H (8-78) U/L Urine Color Yellow Urine Appearance Clear Urine pH 6.5 (5.0-9.0) Ur Specific [place] 1.020 (1.005-1.025) Urine Protein Negative (Neg-Trace) mg/dL Urine Glucose (UA) Negative (Negative) mg/dL Urine Ketones Trace (Negative) mg/dL Urine Blood Negative (Negative) Urine Nitrite Negative (Negative) Ur Leukocyte Esterase Small (1+) H (Negative) Urine RBC 0-2 (0-2) /HPF Urine WBC 0-5 (0-5) /HPF Ur Squamous Epith Cells 3-5 (0-2) /HPF Urine Bacteria None Seen (None Seen) Hyaline Casts 0-2 (0-2) /LPF Independent Interpretation I performed an independent interpretation of an: EKG Radiology Impression Radiologist Impression: My interpretation is in agreement with radiology's impression External Record Review External record reviewed: Prior outpatient labs Medications Administered Discontinued Medications Generic Name Dose Route Start Last Admin Trade Name Freq PRN Reason Stop Dose Admin Sodium Chloride 1,000 mls @ 999 mls/hr 03/31/23 21:30 03/31/23 22:06 Ns IV 03/31/23 22:30 999 mls/hr .Q1H1M JASKARAN Administration Iohexol 100 ml 03/31/23 22:39 03/31/23 22:39 Iohexol 350 Mg/Ml 100 Ml Infus..Btl IV 03/31/23 22:40 85 ml ONCE ONE Administration Discharge Plan Discharge Clinical Impression: Abdominal discomfort, Constipation Patient Disposition: Xfer Other Instructions: Abdominal Pain (ED), Constipation (ED), Fleet Enema (ED), High Fiber Diet (ED) Additional Instructions: 1. Resume all home medications as prescribed. 2. Your diagnosed with constipation and should increase the amount of water intake as well as using [id number] MiraLax. 3. Follow-up with your primary care provider in the next 2-3 days. Return to the ER for any worsening symptoms. Prescriptions: No Action cefuroxime axetil 500 mg Tablet 500 mg PO BID 5 Days Qty: 9 0RF metronidazole 500 mg Tablet 500 mg PO TID 5 Days Qty: 14 0RF trazodone 50 mg Tablet 50 mg PO BEDTIME PRN (Reason: insomnia) 30 Days Qty: 30 0RF clonidine HCl 0.1 mg tablet 0.1 mg PO TID 30 Days Qty: 90 0RF naltrexone 50 mg tablet 50 mg PO DAILY 30 Days Qty: 30 0RF lisinopril 20 mg tablet 20 mg PO DAILY 30 Days Qty: 30 0RF amlodipine 5 mg tablet 5 mg PO DAILY 30 Days Qty: 30 0RF duloxetine 30 mg capsule,delayed release(DR/EC) 30 mg PO DAILY 30 Days Qty: 30 0RF lidocaine [Lidocaine Pain Relief] 4 % Adhesive Patch,Medicated 1 patch transdermal BID PRN (Reason: pain) 30 Days Qty: 60 0RF multivitamin [Daily-Dmitry] Tablet 1 tab PO DAILY 30 Days Qty: 30 0RF famotidine 20 mg tablet 20 mg PO BID 30 Days Qty: 60 0RF
--- NOTE | 2023-03-31 21:39 | PC.NURSE ---
Patient presents from [facility] complaining of flank pain. Patient was diagnosed with UTI approximately 1 week ago and staff at [facility] wanted patient to be further evaluated with new flank pain.
[2023-03-31] MEDS: 0.9 % Sodium Chloride 1,000 ML 999 ML IV (22:06)
[2023-03-31 22:07] VITALS: BP 118/67; PULSE 68; RESP 13; TEMP 36.7; O2SAT 100
[2023-03-31] MEDS: iohexoL 350 MG/ML 100 ML INFUS..BTL IV (22:39)
--- NOTE | 2023-03-31 23:36 | PC.NURSE ---
Pt comes from [facility] (where she is currently under a CV). Per Zenia SAGASTUME who called in report, pt can only be discharged back to the facility via EMS. Staff can be contacted at [phone] with questions/concerns and/or report
[2023-04-01] MEDS: Acetaminophen 325 MG TABLET 650 MG PO (00:45)
--- NOTE | 2023-04-01 01:05 | PC.NURSE ---
Nurse report given to Veronica bautista at [facility]. Pt returning via EMS and aware of plan of care.
== END 2023-04-01 01:07 | disposition other institution (70) ==
PROVIDERS: Emergency Provider Student in an Organized Health Care Education/Training Program
DX: R10.32 Left lower quadrant pain (principal); K59.00 Constipation, unspecified; Z79.899 Other long term (current) drug therapy
CPT/HCPCS: 36415; 74177; 80053; 81001; 82248; 83690; 85025; 87086; 96360; 96361; 99284; Q9967